=== PATIENT | male | born 1945 | race Caucasian/White ===

== ENCOUNTER → 2021-06-04 10:52 | Outpatient (BNVA) | payer OTHER, SELFPAY | PROVIDERS: PCP Internal Medicine; Visit Provider Psychiatry & Neurology Neurology | DX: G20 Parkinson's disease (principal); F32.A Depression, unspecified; G47.52 REM sleep behavior disorder; F41.9 Anxiety disorder, unspecified | CPT/HCPCS: 99212 ==

== ENCOUNTER → 2021-09-13 13:53 | Outpatient (BNVA) | payer OTHER, SELFPAY | PROVIDERS: PCP Internal Medicine; Visit Provider Nurse Practitioner Family | DX: G20 Parkinson's disease (principal); G47.52 REM sleep behavior disorder; F41.9 Anxiety disorder, unspecified | CPT/HCPCS: 99212 ==

== ENCOUNTER → 2021-12-20 13:43 | Outpatient (BNVA) | payer OTHER, SELFPAY | PROVIDERS: PCP Internal Medicine; Visit Provider Psychiatry & Neurology Neurology | DX: G20 Parkinson's disease (principal); G47.52 REM sleep behavior disorder; M75.52 Bursitis of left shoulder; F41.9 Anxiety disorder, unspecified | CPT/HCPCS: 99212 ==

== ENCOUNTER → 2022-06-20 14:21 | Outpatient (BNVA) | payer OTHER, SELFPAY | PROVIDERS: PCP Internal Medicine; Visit Provider Psychiatry & Neurology Neurology | DX: G20 Parkinson's disease (principal); G47.52 REM sleep behavior disorder; F41.8 Other specified anxiety disorders | CPT/HCPCS: 99212 ==

== ENCOUNTER → 2022-10-22 12:15 | Outpatient (BNVA) | payer OTHER, SELFPAY | PROVIDERS: PCP Internal Medicine; Visit Provider Psychiatry & Neurology Neurology | DX: G20 Parkinson's disease (principal); G47.52 REM sleep behavior disorder; F41.9 Anxiety disorder, unspecified | CPT/HCPCS: 99212 ==

== ENCOUNTER → 2022-12-24 14:35 | Outpatient (REF) | payer OTHER, SELFPAY | LOC: HO.SL 14:35 | PROVIDERS: PCP Internal Medicine; Visit Provider Psychiatry & Neurology Neurology | DX: G47.10 Hypersomnia, unspecified (principal); R06.83 Snoring | CPT/HCPCS: 95806 ==

== ENCOUNTER → 2022-12-24 14:48 | Outpatient (BNV) | payer OTHER, SELFPAY | PROVIDERS: PCP Internal Medicine; Visit Provider Psychiatry & Neurology Neurology | DX: G47.10 Hypersomnia, unspecified (principal) | CPT/HCPCS: 95806 ==

== ENCOUNTER 2023-02-25 12:23 | Outpatient (AMB) | payer OTHER, SELFPAY ==
--- NOTE | 2023-02-25 12:30 | A.OFFVIS_ITS ---
Intake Vital Signs 02/25/23 12:31 Height 5 ft 8 in Weight 166 lb 2 oz BMI 25.3 BP 106/72 Blood Pressure Location Rt brachial Position Sitting Respiration 16 Pulse 51 Pulse Source Pulse Oximeter Pulse Oximetry (%) 95 Oxygen Delivery Method Room Air Intake Visit Reasons: 4m follow up-confirmed Intake Note: Pt presents to the office for a 4 month follow up for tremors. He reports his symptoms are unchanged since his last visit. He c/o of headaches twice a week. 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 Allergies No Known Allergies Allergy (Verified 02/25/23 12:31) Medication List - Last Reconciled 02/25/23 by Faviola Bean MD aspirin 81 mg PO DAILY carbidopa-levodopa 25-100 mg (Sinemet) 1 tab PO TID 90 days coenzyme Q10 mg PO fluoride (sodium) 1.1% (PreviDent 5000 Booster Plus) dental fluoxetine 10 mg PO DAILY glucosamine sulfate 1,000 mg PO DAILY hyoscyamine sulfate 0.125 mg PO BID-QID PRN melatonin 3 mg PO BEDTIME 30 days multivitamin 1 tab PO DAILY polyethylene glycol 3350 (Miralax) 17 grams PO DAILY hddfgdw-wpww-ycjfh-oreg-capryl 100 mg-150 mg- 50 mg-150 mg caps PO HPI HPI Comments History of Present Illness Details 77 y/o male patient presents for follow up of Parkinson's.He reports softer speech . Balance is good His REM behavior disorder is better with melatonin, anxiety is better with prozac. Now he reports increased bowel movements . Right hand tremor stable but not impro jarred. Pt is right handed but uses left hand to eat. He states that his fine motor skills declined, can't close shirt buttons. He takes Sinemet 25/100 mg, 1 tab tid He does routine exercise and stretching. Denies falls. He manages constipation with prune juice and flex seed oatmeal. Pt's mood is stable. Denies depression or anxiety. His REM behavior disorder is better, still has leg movements and dreams. [facility] Medical History Cataract Depression Anxiety REM behavioral disorder Parkinsons disease Surgical History Vasectomy status History of tonsillectomy Family History Mother Breast cancer Brother Thyroid cancer Leukemia Sister Colon cancer Social History Alcohol intake: current Alcohol intake frequency: holidays/special occasions only Patient Tobacco Use Status: Never used Tobacco Review of Systems ENT Reports Normal hearing present Neuro Reports Normal hearing present Physical Exam Vital Signs: Last Vital Signs Pulse 51 02/25/23 12:31 Resp 16 02/25/23 12:31 BP 106/72 02/25/23 12:31 Pulse Ox 95 02/25/23 12:31 Oxygen Delivery Method Room Air 02/25/23 12:31 BMI result Body Mass Index 25.3 Const General: cooperative and no acute distress Nutritional Appearance: average body habitus Orientation/consciousness: patient oriented x3 Neuro Other: moderate decreased facial expression and blink No tremors Right UE mild cogwheel rigidity FFM and foot taps decreased patrick R>L Normal posture Mild decreased arm swings r>L General: patient oriented x3 and moves all extremities Cranial nerves: Yes Bilaterally intact EOM present, Yes Normal facial strength present, Yes Midline tongue present, Yes Normal hearing present, Yes Ability to bilaterally rotate head present and Yes Ability to bilaterally elevate shoulders present Cognition (Neuro): normal cognition Motor exam (neuro): Tremors during motor activity present (right hand posturing tremor,bilateral upper arm and wrist rigidity. ) Assessment & Plan Assessment & Plan (1) Parkinsons disease: Code(s): G20 - Parkinson's disease (2) REM behavioral disorder: Code(s): G47.52 - REM sleep behavior disorder (3) Anxiety: Code(s): F41.9 - Anxiety disorder, unspecified Plan Sinemet 25/100 mg, 1 tab TID. melatonin 10mg q HS for REM behavior. I will trial him on clonazepam 0.5mg 1/2 to 1tab qhs Miralax 3-4 times a week Medications: New clonazepam administer 30 minutes before bedtime 0.5 mg PO BEDTIME 30 tabs 3RF Coding Level of Care Code Est Pt Level 4 (42706) Diagnoses Parkinsons disease G20 REM behavioral disorder G47.52 Anxiety F41.9
[2023-02-25 12:31] VITALS: BP 106/72; PULSE 51; RESP 16; O2SAT 95; BMI 25.3
== END 2023-02-25 13:05 | disposition home or self-care (01) ==
PROVIDERS: PCP Internal Medicine; Visit Provider Psychiatry & Neurology Neurology
DX: G20.A1 Parkinson's disease without dyskinesia, without mention of fluctuations (principal); G47.52 REM sleep behavior disorder; F41.9 Anxiety disorder, unspecified
CPT/HCPCS: 99214

== ENCOUNTER → 2023-02-25 12:23 | Outpatient (BNVA) | payer OTHER, SELFPAY | PROVIDERS: PCP Internal Medicine; Visit Provider Psychiatry & Neurology Neurology | DX: G20.A1 Parkinson's disease without dyskinesia, without mention of fluctuations (principal); G47.52 REM sleep behavior disorder; F41.9 Anxiety disorder, unspecified | CPT/HCPCS: 99212 ==

== ENCOUNTER 2023-08-27 12:47 | Outpatient (AMB) | payer OTHER, SELFPAY ==
--- NOTE | 2023-08-27 12:49 | MHC.OFFVIS ---
Vital Signs 08/27/23 12:50 Height 5 ft 8 in Weight 166 lb BMI 25.2 BP 116/74 Blood Pressure Location Rt brachial Position Sitting Respiration 16 Pulse 60 Pulse Source Palpation Intake Visit Reasons: 6 mnts f/u appt for- LVM Intake Note: Pt presents for a 6 month follow up for tremors. 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 Required: No Allergies No Known Allergies Allergy (Verified 08/27/23 12:50) Medication List - Last Reconciled 08/27/23 by Faviola Bean MD aspirin 81 mg PO DAILY carbidopa-levodopa 25-100 mg (Sinemet) 1 tab PO TID 90 days clonazepam 0.5 mg PO BEDTIME coenzyme Q10 mg PO fluoride (sodium) 1.1% (PreviDent 5000 Booster Plus) dental fluoxetine 10 mg PO DAILY glucosamine sulfate 1,000 mg PO DAILY hyoscyamine sulfate 0.125 mg PO BID-QID PRN melatonin 3 mg PO BEDTIME 30 days multivitamin 1 tab PO DAILY polyethylene glycol 3350 (Miralax) 17 grams PO DAILY zgwqsboj-yjfd-olsnw-oreg-capry 100 mg-150 mg- 50 mg-150 mg caps PO HPI Comments Details: 77 y/o male patient presents for follow up of Parkinson's.He reports softer speech . Balance is good His REM behavior disorder is better with melatonin, anxiety is better with prozac. Now he reports increased bowel movements . Right hand tremor stable but not improved. Pt is right handed but uses left hand to eat. He states that his fine motor skills declined, can't close shirt buttons. He takes Sinemet 25/100 mg, 1 tab tid He does routine exercise and stretching. Denies falls. He manages constipation with prune juice and flex seed oatmeal. . His REM behavior disorder was stable but now has notcied some increase PFSH Medical History Cataract Depression Anxiety REM behavioral disorder Parkinsons disease Surgical History Vasectomy status History of tonsillectomy Family History Mother Breast cancer Brother Thyroid cancer Leukemia Sister Colon cancer Social History Alcohol intake: current Alcohol intake frequency: holidays/special occasions only Patient Tobacco Use Status: Never used Tobacco Review of Systems ENT Reports Normal hearing present Neuro Reports Normal hearing present Physical Exam Vital Signs: Last Vital Signs Pulse 60 08/27/23 12:50 Resp 16 08/27/23 12:50 BP 116/74 08/27/23 12:50 BMI result Body Mass Index 25.2 Const General: cooperative and no acute distress Nutritional Appearance: average body habitus Orientation/consciousness: patient oriented x3 Neuro Other: moderate decreased facial expression and blink right UE tremors Right UE mild cogwheel rigidity FFM and foot taps decreased patrick R>L Normal posture Mild decreased arm swings r>L General: patient oriented x3 and moves all extremities Cranial nerves: Yes Bilaterally intact EOM present, Yes Normal facial strength present, Yes Midline tongue present, Yes Normal hearing present, Yes Ability to bilaterally rotate head present and Yes Ability to bilaterally elevate shoulders present Cognition (Neuro): normal cognition Motor exam (neuro): Tremors during motor activity present (right hand posturing tremor,bilateral upper arm and wrist rigidity. ) Assessment & Plan Assessment & Plan (1) Parkinsons disease: Code(s): G20 - Parkinson's disease Category: Medical (2) REM behavioral disorder: Code(s): G47.52 - REM sleep behavior disorder Category: Medical (3) Anxiety: Code(s): F41.9 - Anxiety disorder, unspecified Category: Medical Plan Sinemet 25/100 mg, 1 tab TID. melatonin 10mg q HS for REM behavior. Increase clonazepam 0.5mg 1tab qhs Miralax 3-4 times a week Medications: Changed From melatonin 3 mg PO BEDTIME 30 days 30 tabs 3RF sleep To melatonin 10 mg PO BEDTIME 30 days 30 tabs 3RF sleep Coding Level of Care Code Est Pt Level 4 (50038) Diagnoses Parkinsons disease G20 REM behavioral disorder G47.52 Anxiety F41.9
[2023-08-27 12:50] VITALS: BP 116/74; PULSE 60; RESP 16; BMI 25.2
== END 2023-08-27 13:19 | disposition home or self-care (01) ==
PROVIDERS: PCP Internal Medicine; Visit Provider Psychiatry & Neurology Neurology
DX: G20.A1 Parkinson's disease without dyskinesia, without mention of fluctuations (principal); G47.52 REM sleep behavior disorder; F41.9 Anxiety disorder, unspecified
CPT/HCPCS: 99214

== ENCOUNTER → 2023-08-27 12:47 | Outpatient (BNVA) | payer OTHER, SELFPAY | PROVIDERS: PCP Internal Medicine; Visit Provider Psychiatry & Neurology Neurology | DX: G20.A1 Parkinson's disease without dyskinesia, without mention of fluctuations (principal); G47.52 REM sleep behavior disorder; F41.9 Anxiety disorder, unspecified | CPT/HCPCS: 99212 ==

== ENCOUNTER 2024-03-22 13:43 | Outpatient (AMB) | payer OTHER, SELFPAY ==
[2024-03-22 13:47] VITALS: BP 124/78; BMI 25.2
--- NOTE | 2024-03-22 13:47 | MHC.OFFVIS ---
Vital Signs 03/22/24 13:47 Height 5 ft 8 in Weight 166 lb BMI 25.2 BP 124/78 Blood Pressure Location Rt brachial Position Sitting Intake Visit Reasons: F/u appt Intake Note: Patient presents for follow up Allergies No Known Allergies Allergy (Verified 03/22/24 13:51) Medication List - Last Reconciled 03/22/24 by Faviola Bean MD aspirin 81 mg PO DAILY carbidopa-levodopa 25-100 mg (Sinemet) 1 tab PO TID 90 days clonazepam 0.5 mg PO BEDTIME coenzyme Q10 mg PO fluoride (sodium) 1.1% (PreviDent 5000 Booster Plus) dental fluoxetine 10 mg PO DAILY glucosamine sulfate 1,000 mg PO DAILY hyoscyamine sulfate 0.125 mg PO BID-QID PRN melatonin 10 mg PO BEDTIME 30 days multivitamin 1 tab PO DAILY polyethylene glycol 3350 (Miralax) 17 grams PO DAILY tqnsliry-yzpt-jgusn-oreg-capry 100 mg-150 mg- 50 mg-150 mg caps PO HPI Comments Details: 78 y/o male patient presents for follow up of Parkinson's.His tremors in his Right hand are constant Balance is good. speech is lower and stutters His REM behavior disorder is better with melatonin and clonazepam. Anxiety is better with prozac. Now he reports increased bowel movements. Pt is right handed but uses left hand to eat. He states that his fine motor skills declined, can't close shirt buttons. He takes Sinemet 25/100 mg, 1 tab tid He does routine exercise and stretching. He has more trouble with fine motor coordination. Denies falls. He manages constipation with prune juice and flex seed oatmeal. [facility] Medical History Cataract Depression Anxiety REM behavioral disorder Parkinsons disease Surgical History Vasectomy status History of tonsillectomy Family History Mother Breast cancer Brother Thyroid cancer Leukemia Sister Colon cancer Social History Alcohol intake: current Alcohol intake frequency: holidays/special occasions only Patient Tobacco Use Status: Never used Tobacco Review of Systems ENT Reports Normal hearing present Neuro Reports Normal hearing present Physical Exam Vital Signs: Last Vital Signs BP 124/78 03/22/24 13:47 BMI result Body Mass Index 25.2 Const General: cooperative and no acute distress Nutritional Appearance: average body habitus Orientation/consciousness: patient oriented x3 Neuro Other: moderate decreased facial expression and blink right UE tremors Right UE mild cogwheel rigidity FFM and foot taps decreased patrick R>L Normal posture Mild decreased arm swings r>L General: patient oriented x3 and moves all extremities Cranial nerves: Yes Bilaterally intact EOM present, Yes Normal facial strength present, Yes Midline tongue present, Yes Normal hearing present, Yes Ability to bilaterally rotate head present and Yes Ability to bilaterally elevate shoulders present Cognition (Neuro): normal cognition Motor exam (neuro): Tremors during motor activity present (right hand posturing tremor,bilateral upper arm and wrist rigidity. ) Assessment & Plan Assessment & Plan (1) Parkinsons disease: Code(s): G20 - Parkinson's disease Category: Medical Qualifiers: Dyskinesia presence: without dyskinesia Fluctuating manifestations: without fluctuating manifestations Qualified Code(s): G20.A1 - Parkinson's disease without dyskinesia, without mention of fluctuations (2) REM behavioral disorder: Code(s): G47.52 - REM sleep behavior disorder Category: Medical (3) Anxiety: Code(s): F41.9 - Anxiety disorder, unspecified Category: Medical Plan Increase Sinemet 25/100 mg, 1 tab qID. melatonin 10mg q HS for REM behavior. clonazepam 0.5mg 1tab qhs Miralax 3-4 times a week Orders: Orders Complete Blood Count Auto Diff Today R35.0 - Frequency of micturition UA w Microscopic Today R35.0 - Frequency of micturition Comprehensive Met. Panel Today R35.0 - Frequency of micturition Referrals Urology Referral G20.A1 - Parkinson's disease without dyskinesia, without mention of fluctuations, R35.0 - Frequency of micturition Medications: New levofloxacin 250 mg PO Q24H 7 tabs 0RF fluoxetine 10 mg PO DAILY 90 caps 6RF Changed From carbidopa-levodopa 25-100 mg (Sinemet) 1 tab PO TID 90 days 270 tabs 6RF To carbidopa-levodopa 25-100 mg (Sinemet) 1 tab PO QID 90 days 360 tabs 6RF Refilled clonazepam administer 30 minutes before bedtime 0.5 mg PO BEDTIME 30 tabs 3RF Coding Level of Care Code Est Pt Level 4 (65322) Complex EM visit Add On G2211 Diagnoses Parkinson's disease without dyskinesia or fluctuating manifestations G20.A1 Dyskinesia presence: without dyskinesia Fluctuating manifestations: without fluctuating manifestations REM behavioral disorder G47.52 Anxiety F41.9
== END 2024-03-22 14:35 | disposition home or self-care (01) ==
PROVIDERS: PCP Internal Medicine; Visit Provider Psychiatry & Neurology Neurology
DX: G20.A1 Parkinson's disease without dyskinesia, without mention of fluctuations (principal); G47.52 REM sleep behavior disorder; F41.9 Anxiety disorder, unspecified
CPT/HCPCS: 99214

== ENCOUNTER → 2024-03-22 13:43 | Outpatient (BNVA) | payer OTHER, SELFPAY | PROVIDERS: PCP Internal Medicine; Visit Provider Psychiatry & Neurology Neurology | DX: G20.A1 Parkinson's disease without dyskinesia, without mention of fluctuations (principal); G47.52 REM sleep behavior disorder; F41.9 Anxiety disorder, unspecified | CPT/HCPCS: 99212 ==

== ENCOUNTER 2024-05-19 14:37 | Outpatient (AMB) | payer OTHER, SELFPAY ==
--- NOTE | 2024-05-19 14:55 | A.OFFVIS_ITS ---
Intake Visit Reasons: urinary frequency Intake Note: New patient Presents for Urinary Frequency Any Urology Medication: None Antibiotic Allergies:None Blood Thinners: Asprin PVR: 12ml Location Analyst Required: No Accompanied by: Self / Same As Patient Allergies No Known Allergies Allergy (Verified 05/19/24 15:31) Medication List - Last Reconciled 05/19/24 by MEGAN Rodriguez aspirin 81 mg PO DAILY carbidopa-levodopa 25-100 mg (Sinemet) 1 tab PO QID 90 days clonazepam 0.5 mg PO BEDTIME coenzyme Q10 mg PO fluoride (sodium) 1.1% (PreviDent 5000 Booster Plus) dental fluoxetine 10 mg PO DAILY glucosamine sulfate 1,000 mg PO DAILY hyoscyamine sulfate 0.125 mg PO BID-QID PRN levofloxacin 250 mg PO Q24H melatonin 10 mg PO BEDTIME 30 days multivitamin 1 tab PO DAILY polyethylene glycol 3350 (Miralax) 17 grams PO DAILY zmgzmalo-lgeu-bsoar-oreg-capry 100 mg-150 mg- 50 mg-150 mg caps PO HPI Comments Details: Mario is a very pleasant 78-year-old male patient of Dr. Mckeon. He has a past medical history of urinary frequency, cataracts, depression, anxiety, and Parkinson's disease. He presents to the office today as a new patient for ongoing lower urinary tract symptoms. In discussion with the patient today he reports noting urinary urgency, bladder pressure, and urinary frequency. He otherwise denies hematuria, dysuria, foul smelling urine, changes to urinary stream, flank pain, fever, and or chills. We discussed at length potential causes for lower urinary tract symptoms patient was experiencing as well as further treatment options and risks and benefits of these treatment options. In office urinalysis results reviewed with the patient today. PVR 12 mL. We discussed at length correlation of Parkinson's disease and lower urinary tract symptoms. Discussed obtaining retroperitoneal ultrasound for further assessment evaluation as well as PSA. We discussed potential near future in office urodynamics and or cystoscopy for further assessment evaluation. We discussed lifestyle modifications to assist with lower urinary tract symptoms. He otherwise offers no other issues or concerns at this time. [facility] Medical History Urinary frequency Cataract Depression Anxiety REM behavioral disorder Parkinsons disease Surgical History Vasectomy status History of tonsillectomy Family History Mother Breast cancer Brother Thyroid cancer Leukemia Sister Colon cancer Social History Alcohol intake: current Alcohol intake frequency: holidays/special occasions only Patient Tobacco Use Status: Never used Tobacco Review of Systems Const All systems reviewed & are unremarkable except as noted in HPI and below Physical Exam Const General: cooperative, healthy appearing, comfortable, no acute distress, well developed, alert and awake Orientation/consciousness: patient oriented x3 Limitations: no limitations HEENT Head: Yes normal to inspection, Yes normocephalic and Yes atraumatic Ears: hearing grossly normal bilaterally Eyes General: appearance normal, both eyes and all related structures Neck Neck: Yes normal visual inspection and Yes trachea midline Chest Chest palpation & inspection: normal inspection of the chest Resp Effort & Inspection: normal respiratory effort and able to speak in complete sentences Cardio Rate: regular rate GI Inspection: Yes normal to inspection General: Yes no CVA tenderness Back/Spine/Pelvis Back: no CVA tenderness Skin General skin exam: no rashes or lesions noted Neuro General: patient oriented x3 Extrem General: Yes normal to inspection Psych Appearance: grossly normal and well kempt Mental Status: mental status grossly normal Speech and movement: Normal speech and movement present and Clear speech present Affect: normal affect Attitude: cooperative Thought process: Normal thought process present Thought content: Normal thought content present Insight: Fair insight present (Psych) Judgement: Fair judgement present (Psych) Office Procedures Post Void Residual Post Residual Void Post Void Residual (PVR): 12 68710-[id number] Void Residual by ultrasound Results AMB Urinalysis, Automated UA Leukoctes 0 Yon/uL Last Edit by REMINGTON Dunn on 05/19/24 15:11 UA Nitrite Negative Last Edit by REMINGTON Dunn on 05/19/24 15:11 UA Urobilinogen 0.2 mg/dL Last Edit by REMINGTON Dunn on 05/19/24 15:1 1 UA Protein 0 mg/dL Last Edit by REMINGTON Dunn on 05/19/24 15:11 UA pH 6.0 Last Edit by Ana Luisa Madera RMA on 05/19/24 15:11 UA Blood 10 Jaspreet/uL Last Edit by Ana Luisa Madera, RMA on 05/19/24 15:11 UA Specific [place] 1.005 Last Edit by Ana Luisa Madera, RMA on 05/19/24 15: 11 UA Ketone Negative Last Edit by Ana Luisa Madera, RMA on 05/19/24 15:11 UA Bilirubin 0 mg/dL Last Edit by Ana Luisa Madera, RMA on 05/19/24 15:11 UA Glucose 0 mg/dL Last Edit by Ana Luisa Madera, RMA on 05/19/24 15:11 Results Reviewed Results Reviewed: Laboratory Last Values Urine pH (Auto) 6.0 05/19/24 15:10 Specific [place] (Auto) 1.005 05/19/24 15:10 Urine Protein (Auto) 0 mg/dL 05/19/24 15:10 Glucose (UA)(Auto) 0 mg/dL 05/19/24 15:10 Urine Ketones (Auto) Negative 05/19/24 15:10 Urine Blood (Auto) 10 Jaspreet/uL 05/19/24 15:10 Urine Nitrite (Auto) Negative 05/19/24 15:10 Urine Bilirubin (Auto) 0 mg/dL 05/19/24 15:10 Urine Urobilinogen (Auto) 0.2 mg/dL 05/19/24 15:10 Leukocyte Esterase (Auto) 0 Yon/uL 05/19/24 15:10 Assessment & Plan Assessment & Plan (1) Urinary frequency: Code(s): R35.0 - Frequency of micturition Category: Medical (2) Urinary urgency: Code(s): R39.15 - Urgency of urination Category: Medical (3) Sensation of pressure in bladder area: Code(s): R39.89 - Other symptoms and signs involving the genitourinary system Category: Medical Plan In office urinalysis results reviewed with the patient today; as noted above. PVR 12 mL. We discussed at length potential causes of lower urinary tract symptoms patient was experiencing as well as further treatment options and risks and benefits of these treatment options. Will obtain retroperitoneal ultrasound for further assessment evaluation. Will obtain PSA for further assessment evaluation. Start Flomax. We discussed lifestyle modifications to assist with lower urinary tract symptoms. We discussed bladder triggers/irritants. Follow-up in 1-3 months with imaging, labs, and PVR; or sooner with any issues, concerns, and or questions. Orders: Orders US retroperitoneal comp Today R35.0 - Frequency of micturition, R39.15 - Urgency of urination, R39.89 - Other symptoms and signs involving the genitourinary system Prostate Specific Antigen Today R35.0 - Frequency of micturition, R39.15 - Urgency of urination, R39.89 - Other symptoms and signs involving the genitourinary system AMB Urinalysis Automated Today Z13.9 - Encounter for screening, unspecified AMB Post Void Residual by ultrasound Today R35.0 - Frequency of micturition Medications: New tamsulosin 0.4 mg PO BEDTIME 30 caps 3RF 30 days N40.1 - Benign prostatic hyperplasia with lower urinary tract symptoms, R35.1 - Nocturia Patient Instructions: The patient had an opportunity to ask questions regarding the treatment plan. All questions were answered. Physical exam, labs, and imaging were discussed and reviewed in detail. As well as risks, benefits, and discussion of treatment choices. No major barriers to understanding were identified. The patient expressed understanding and agreement with the above treatment plan. The patient was made aware they should contact our office by phone for worsening of their current condition, the appearance of new symptoms, or with any questions or concerns. Compliance is encouraged with any medications and follow up testing that is ordered. It is a privilege to be allowed the opportunity to participate in? your urological care.? Again, if you have any questions or concerns If you have any questions or concerns please do not hesitate to contact me. The office is [phone]. This note is constructed using voice recognition software. While every effort has been made to ensure accuracy commercial property administrator errors may have been included. Yours sincerely, MEGAN Rodriguez Coding Level of Care Code New Pt Level 4 (04942) Diagnoses Urinary frequency R35.0 Urinary urgency R39.15 Sensation of pressure in bladder area R39.89 CPT Codes Post Residual Void - PVR CPT Code: 96076-[place]wup Void Residual by ultrasound ([id number])
--- OUTSIDE RECORDS SUMMARY | 2024-05-19 17:03 | XMS_ITS | Encounter Summary ---
Author Organization [facility] Address [address] [place] [address] Care Team Providers Care Mason Liner Name Role Phone Nataliia Mckeon MD Primary Care Provider [phone] Reason for Referral * Consultation (Routine) - Pending Review Specialty Diagnoses / Procedures Referred By Ayanna ribeiro Referred To Contact Urology Diagnoses Scrotal cyst Nataliia Mckeon MD [address] [place] [id number] Cherelle Guerra [address] [place] [phone] Referral ID Status Reason Start Date Expiration Date Visits Requested Visits Authorized [id number] Pending Review Specialty Services Required 05/11/2024 05/11/2025 10 10 Reason for Visit * Reason Onset Date Comments Referral 05/04/2024 Referral for [facility] Encounter Details Date Type Department Care Team (Late st Contact Info) Description 05/04/2024 Telephone Adult Medicine [address] [phone] Nataliia Mckeon MD [address] [place] [address] [phone] Referral (Referral for [facility]) Social History Tobacco Use Types Packs/Day Years Used Date Smoking Tobacco: Never Smokeless Tobacco: Never Alcohol Use Standard Drinks/Week Comments Yes 0 (1 standard drink = 0.6 oz pur e alcohol) Sex and Gender Information Value Date Recorded Sex Assigned at Not on file Gender Identity Not on file Sexual Orientation Not on file documented as of this encounter Progress Notes * Tanvi Brown LPN - 05/04/2024 3:14 PM EST Pt was last seen October 2023.. no mention of urinary freq. Please triage * Brenda Cuadra - 05/04/2024 2:23 PM EST Request for an insurance referral Caller: n/a Office: [facility] Insurance: Family ID: [id number] Provider: Cherelle Guerra DOS: 05/19/24 Visits: 10 Dx code: R35.0, urinary frequency IMPORTANT Pls copy and paste this into the order. Otherwise, it will not be processed as an ins referral documented in this encounter Plan of Treatment Upcoming Encounters Date Type Department Care Team (Late st Contact Info) Description 05/24/2024 1:00 PM EST Office Visit Adult Medicine [address] [phone] Nataliia Mckeon MD [address] [place] [phone] Scheduled Referrals Name Type Priority Associated Diagnoses Order Schedule Ambulatory referral to Urology Outpatient Referral Routine Scrotal cyst 1 Occurrences starting 05/05/2024 until 05/04/2025 documented as of this encounter Visit Diagnoses Diagnosis Scrotal cyst- Primary documented in this encounter Care Teams Mason Liner Relationship Specialty Start Date End Date Nataliia Mckeon MD [address] [place] [phone] PCP - General Internal Medicine 10/24/20 documented as of this encounter
--- OUTSIDE RECORDS SUMMARY | 2024-05-19 17:03 | XMS_ITS | Clinical Summary ---
Author Organization [facility] Address [address] [place] [address] Phone Care Team Providers Care Security Tester Name Role Phone Nataliia Mckeon MD Primary Care Provider [phone] Allergies Active Allergy Reactions Criticality Noted Date Comments Amoxicillin Trihydrate Rash High 09/03/2005 Cephalexin Monohydrate Rash High 09/03/2005 Medications Medication Sig Dispensed Refills Start Date End Date Status aspirin 81 mg chewable tablet Take 1 Tablet by mouth once. 3 times weekly 08/16/2010 Active carbidopa-levodopa (SINEMET) 25-100 mg per tablet 3 times daily. 01/23/2021 Active coenzyme Q-10 10 mg capsule Take by mouth 1 (one) time each day. Active FLUoxetine (PROzac) 10 mg capsule Take 1 capsule (10 mg total) by mouth 1 (one) time each day. 11/20/2023 Active fluticasone propionate (FLONASE) 50 mcg/actuation nasal spray 2 Sprays by Nasal route daily. 09/05/2021 Active glucosam/sherri-msm1/C/ franki/bosw (GLUCOSAMINE-CHONDROI TIN 3X ORAL) Take by mouth 1 (one) time each day. Active multivitamin with minerals (Multiple Vitamin-Minerals) tablet Take by mouth. Active melatonin 1 mg tablet Take 1 mg by mouth at bedtime. Active turmeric root extract 500 mg capsule Take by mouth. Active fluoride, sodium, (PreviDent 5000 Booster Plus) 1.1 % paste Historic 08/26/2022 Active Active Problems Problem Noted Date Diagnosed Date Hyperglycemia 11/12/2022 Parkinson disease 06/11/2021 Scrotal cyst 05/25/2020 Overview (03/24/2024): Numerous on u/s 04/2020, likely epidydimal cysts vs spermatoceles ED (erectile dysfunction) of organic origin 01/26 Benign neoplasm of colon 12/02/2006 Overview (03/24/2024): Diminutive tubular adenomas x 2 at colonoscopy 11/09/2001. Negative colonoscopy 12/02/2006, no colon cancer screening needed for 5 years. Allergic rhinitis 09/03/2005 Esophageal reflux 09/03/2005 Overview (03/24/2024): EGD was normal, 05/24/2004. Hearing loss 09/03/2005 Irritable bowel syndrome 09/03/2005 Lyme disease 09/03/2005 Overview (03/24/2024): Last Assessment & Plan: 1997 Encounters Date Type Department Care Team Description 05/04/2024 Telephone Adult Medicine [address] [address] Nataliia Mckeon MD Referral (Referral for [facility]) from Last 3 Months Immunizations Name Administration Dates Next Due H1N1 Inj Preservative Free 04/19/2009 Influenza trivalent, 0.5mL ( Fluad) 65yo and older 01/30/2022,01/30/2021,01/22/2020,02/14,01/31/2016 Influenza trivalent, 0.5mL, preservative free (Fluarix; FluLaval; Fluzone) ages 6mo and older (Afluria) 3 years and older 01/27/2015,02/02/2014,01/12/2013,01/06,01/10/2011,02/08/2010,01/20/2009 ,03/06/2006 Moderna Covid-19 Bivalent, O riginal + Ba.1 (Non-US Tradename Spikevax Bivalent) 02/04/2022 Pneumococcal conjugate 13 va lent (Prevnar 13, PCV13) 2mo and older 04/12/2014 Pneumococcal polysaccharide 23 valent (Pneumovax 23) 2yo and older 10/04/2011 Td Tetanus diptheria (Tdvax) 7yo and older 10/26/2014,06/12/2000 Tdap Tetanus diptheria acell ular pertussis (Boostrix; Adacel) 7yo and older 08/11/2008 Zoster Live 10/04/2011 Zoster recombinant (Shingrix ) 19yo and older 12/15/2020,10/10/2020 Surgical History Surgery Date Site/Laterality Comments VASECTOMY PROCEDURE: AR VASECTOMY UNI/BI SPX W/POSTOP SEMEN EXAMS NASAL SEPTUM SURGERY PROCEDURE: AR REPAIR NASAL SEPTAL PERFORATIONS; COMMENT: 2 operations TONSILLECTOMY PROCEDURE: HISTORICAL TONSILLECTOMY; COMMENT: 1960 UPPER GASTROINTESTINAL ENDOSCOPY 05/24/2004 PROCEDURE: AR UPPER GI ENDOSCOPY PERFORMED; COMMENT: Negative COLONOSCOPY 11/09/2001 PROCEDURE: HISTORICAL COLONOSCOPY; COMMENT: Dim tub ad x2 COLONOSCOPY 12/02/2006 PROCEDURE: HISTORICAL COLONOSCOPY; COMMENT: Negative COLONOSCOPY 02/07/2012 PROCEDURE: HISTORICAL COLONOSCOPY; COMMENT: no polyps COLONOSCOPY 02/24/2017 PROCEDURE: HISTORICAL COLONOSCOPY; COMMENT: Right colon polyps ? 3 : Tubular adenoma ? 3 . COLONOSCOPY 03/10/2020 PROCEDURE: HISTORICAL COLONOSCOPY; COMMENT: Diverticulosis, no polyps, repeat in 5 years. Medical History Medical History Date Comments Allergic rhinitis, cause unspecified DX:Allergic rhinitis, cause unspecified Irritable bowel syndrome DX:Irri table bowel syndrome Esophageal reflux DX:Esophageal reflux Lyme disease DX:Lyme disease Family history of malignant neoplasm of gastrointestinal tract 12/02/2006 DX:Family history of maligna nt neoplasm of gastrointestinal tract; COMMENT: Sister with diagnosis of colon cancer at age 47. First-degree relatives x 3 with colonic polyps. Benign neoplasm of colon 12/02/2006 DX:[place] neoplasm of colon; COMMENT: Diminutive tubular adenomas x 2 at colonoscopy 11/09/2001. Negative colonoscopy 12/02/2006, no colon cancer screening needed for 5 years. Hearing loss 09/03/2005 DX:Hearing loss ED (erectile dysfunction) of organic origin 02/12/2016 DX:ED (erectile dysfunction) of organic origin Scrotal cyst 05/25/2020 DX:Scrotal cyst; COMMENT: Numerous on u/s 04/2020, likely epidydimal cysts vs spermatoceles Parkinson disease (CMS/HCC) 06/11/2021 DX:P arkinson disease (HCC) Family History Medical History Relation Name Comments Breast cancer Aunt 1 maternal aunt; bilateral Breast cancer Aunt 2 paternal aunt Breast cancer Aunt 3 paternal aunt Breast cancer Aunt 4 maternal aunt; unilateral Other: thyroid cancer Brother 1 1 04/2019 Other: neoblastoma Brother 2 Leukemia Brother 3 Leukemia Brother 4 Other cancer Brother 5 thyroid Leukemia Daughter 1 Other: Other Father 66, pa ncreatitis, [place] Breast cancer Maternal Grandmother bilate ral; age at diagnosis unclear Breast cancer Mother 1970, unilateral Bladder Cancer Other 1 maternal firs t cousin Breast cancer Other 2 maternal first cousin Colon cancer Paternal Grandfather at age 66 Throat cancer Paternal Grandmother nonsmo ker Colon cancer Sister 1 Leukemia Uncle paternal uncle Relation Name Status Comments Aunt 1 Aunt 2 Aunt 3 Aunt 4 Brother 1 Myelodysplasia then AML Brother 2 Brother 3 Brother 4 Brother 5 Alive Brother 6 Glioblastoma Brother 7 Myelodydplasia Brother 8 Alive 2 Healthy Daughter 1 Daughter 2 Leukemia - AML Father (Age 66) Pancreatic failure alcholism Maternal Grandfather choking Maternal Grandmother Breast cancer Mother (Age 59) Breast can cer Other 1 Other 2 Paternal Grandfather [place] - co peter? Paternal Grandmother Throat cancer Sister 1 Sister 2 2 at Sister 3 Alive Colon Cancer Sister 4 Alive Breast cancer Sister 5 Alive Healthy Son Alive Healthy Uncle Social History Tobacco Use Types Packs/Day Years Used Date Smoking Tobacco: Never Smokeless Tobacco: Never Alcohol Use Standard Drinks/Week Comments Yes 0 (1 standard drink = 0.6 oz pur e alcohol) Sex and Gender Information Value Date Recorded Sex Assigned at Not on file Gender Identity Not on file Sexual Orientation Not on file Obstetrics History Last Filed Vital Signs Vital Sign Reading Time Taken Comments Blood Pressure 118/74 11/20/2023 1:52 PM EDT Pulse 66 11/20/2023 1:52 PM EDT Temperature - - Respiratory Rate - - Oxygen Saturation - - Inhaled Oxygen Concentration - - Weight 73.5 kg (162 lb) 11/20/2023 1:52 PM EDT Height 170.2 cm (5' 7 ) 11/20/2023 1:52 PM EDT Body Mass Index 25.37 11/20/2023 1:52 PM EDT Plan of Treatment Upcoming Encounters Date Type Department Care Team (Late st Contact Info) Description 05/24/2024 1:00 PM EST Office Visit Adult Medicine [facility] [address] [place] [address] Nataliia Mckeon MD [address] [place] [address] Health Maintenance Due Date Last Done Comments RSV Immunization Patients 60+ Years Old (1 - 1-dose 75+ series) 2021 Falls Risk Assessment 04/06/2022 Social Influencers of Health Screening 04/06/2022 COVID-19 Vaccine ( season) 2023 02/04/2022, 03/09/2021, 07/22/2020, Additional history exists Influenza Vaccine (#1) 2023 , 01/30/2021, 01/22/2020, Additional history exists DTaP,Tdap,and Td Vaccines (4 - Td or Tdap) 10/26/2024 10/26/2014, 08/11/2008, 06/12/2000 Depression Screening 11/19/2024 11/20/2023 Medicare Annual Wellness Visit 11/19/2024 11/20/2023 Colorectal Cancer Screening: Colonoscopy 03/10/2025 03/10/2020 Cholesterol Screening (Lipid Panel) 06/14/2026 06/14/2021 Hepatitis C Screening Completed 10/22/2012 Pneumococcal Vaccine: 65+ Years Completed 04/12/2014, 10/04/2011 Zoster Vaccines Completed 12/15/2020, 09/26, 10/04/2011 HIB Vaccines Aged Out No longer eligi ble based on patient's age to complete this topic HPV Vaccines Aged Out No longer eligi ble based on patient's age to complete this topic Hepatitis A Vaccines Aged Out No long er eligible based on patient's age to complete this topic Hepatitis B Vaccines Aged Out No long er eligible based on patient's age to complete this topic IPV Vaccines Aged Out No longer eligi ble based on patient's age to complete this topic MMR Vaccines Aged Out No longer eligi ble based on patient's age to complete this topic Meningococcal ACWY Vaccine Aged Out N o longer eligible based on patient's age to complete this topic RSV Immunization Patients Under 20 months Aged Out No longer eligible based on patient's age to complete this topic Varicella Vaccines Aged Out No longer eligible based on patient's age to complete this topic Procedures Procedure Name Priority Date/Time Associated Diagnosis Comments DEPRESSION SCREENING Routine 11/20/2023 LIPID PANEL Routine 06/14/2021 COLONOSCOPY Routine 03/10/2020 HEPATITIS C SCREENING Routine 10/22/2012 from Last 3 Months or Most Recently Relevant to Health Maintenance Results * Depression Screening (11/20/2023) Pathologist [facility] Depression Screening abstracted Historical Provider MD SANDY Fitch * Lipid panel (06/14/2021) [facility] LDL/HDL Ratio 3 0 - 4 Triglycerides 96 0 - 150 mg/dL Cholesterol 140 0 - 200 mg/dL HDL 45 40 mg/dL LDL Cholesterol 76 0 - 100 mg/dL Blood Venous blood specimen / Unknown Historical Provider LAB BLOOD ORDERAB LES * Colonoscopy (03/10/2020) Pathologist [facility] Colonoscopy abnormal, abstracted Anatomical Region Laterality Modality Other Historical Provider MD SANDY PEDERSON E * Hepatitis C Screening (10/22/2012) Pathologist [facility] Hepatitis C Screening abstracted Historical Provider MD SANDY Fitch from Last 3 Months or Most Recently Relevant to Health Maintenance Care Teams Security Tester Relationship Specialty Start Date End Date Nataliia Mckeon MD [address] [place] [address] PCP - General Internal Medicine 10/24/20
== END 2024-05-19 15:32 | disposition home or self-care (01) ==
PROVIDERS: PCP Internal Medicine; Visit Provider Nurse Practitioner Family
DX: R35.0 Frequency of micturition (principal); R39.15 Urgency of urination; R39.89 Other symptoms and signs involving the genitourinary system; Z13.9 Encounter for screening, unspecified
CPT/HCPCS: 99204

== ENCOUNTER 2024-05-19 14:37 | Outpatient (REF) | payer OTHER, SELFPAY ==
--- OUTSIDE RECORDS SUMMARY | 2024-05-19 18:23 | XMS_ITS | Clinical Summary ---
Author Organization [facility] Address [address] [place] [address] Phone Care Team Providers Care Refractory Specialist Name Role Phone Nataliia Mckeon MD Primary Care Provider [phone] Allergies Active Allergy Reactions Criticality Noted Date [...] Care Team Description 05/04/2024 Telephone Adult Medicine [address] [phone] Nataliia Mckeon MD Referral (Referral for [facility]) from Last 3 Months Immunizations [...] History Surgery Date Site/Laterality Comments VASECTOMY PROCEDURE: ND VASECTOMY UNI/BI SPX W/POSTOP SEMEN EXAMS NASAL SEPTUM SURGERY PROCEDURE: ND REPAIR NASAL SEPTAL PERFORATIONS; COMMENT: 2 operations TONSILLECTOMY PROCEDURE: HISTORICAL TONSILLECTOMY; COMMENT: 1960 UPPER GASTROINTESTINAL ENDOSCOPY 05/24/2004 PROCEDURE: ND UPPER GI ENDOSCOPY PERFORMED; COMMENT: Negative COLONOSCOPY [...] 1 Other: Other Father 66, pa ncreatitis, [place] Breast cancer Maternal Grandmother bilate ral; age [...] 1:00 PM EST Office Visit Adult Medicine [facility] [address] [place] [address] Nataliia Mckeon MD [address] [place] [address] Health Maintenance Due Date Last Done Comments [...] Maintenance Results * Depression Screening (11/20/2023) Pathologist [facility] Depression Screening abstracted Historical Provider MD SANDY Fitch * Lipid panel (06/14/2021) [facility] LDL/HDL Ratio 3 0 - 4 Triglycerides 96 0 - 150 mg/dL Cholesterol 140 0 - 200 mg/dL HDL 45 40 mg/dL LDL Cholesterol 76 0 - 100 mg/dL Blood Venous blood specimen / Unknown Historical Provider LAB BLOOD ORDERAB LES * Colonoscopy (03/10/2020) Pathologist [facility] Colonoscopy abnormal, abstracted Anatomical Region Laterality Modality Other Historical Provider MD SANDY PEDERSON E * Hepatitis C Screening (10/22/2012) Pathologist [facility] Hepatitis C Screening abstracted Historical Provider MD SANDY Fitch from Last 3 Months or Most Recently Relevant to Health Maintenance Care Teams Refractory Specialist Relationship Specialty Start Date End Date Nataliia Mckeon MD [address] [place] [address] PCP - General Internal Medicine 10/24/20
--- OUTSIDE RECORDS SUMMARY | 2024-05-19 18:24 | XMS_ITS | Encounter Summary ---
Author Organization [facility] Address [address] [place] [address] Care Team Providers Care Coagulant Dipper Name Role Phone Nataliia Mckeon MD Primary Care Provider [phone] Reason for Referral * Consultation (Routine) - Pending Review Specialty Diagnoses / Procedures Referred By Ayanna ribiero Referred To Contact Urology Diagnoses Scrotal cyst Nataliia Mckeon MD [address] [place] [phone] Cherelle Guerra [address] [place] [phone] Referral ID Status Reason Start Date Expiration Date Visits Requested Visits Authorized [id number] Pending Review Specialty Services Required 05/11/2024 05/11/2025 10 10 Reason for Visit * Reason Onset Date Comments Referral 05/04/2024 Referral for [facility] Encounter Details Date Type Department Care Team (Late st Contact Info) Description 05/04/2024 Telephone Adult Medicine [address] [phone] Nataliia Mckeon MD [address] [place] [phone] Referral (Referral for [facility]) Social History Tobacco Use Types [...] for an insurance referral Caller: n/a Office: [facility] Insurance: Family ID: [id number] Provider: Cherelle Guerra DOS: 05/19/24 Visits: 10 Dx code: R35.0, urinary frequency IMPORTANT Pls copy and paste this into the order. Otherwise, it will not be processed as an ins referral documented in this encounter Plan of Treatment Upcoming Encounters Date Type Department Care Team (Late st Contact Info) Description 05/24/2024 1:00 PM EST Office Visit Adult Medicine [address] [phone] Nataliia Mckeon MD [address] [place] [phone] Scheduled Referrals Name Type Priority Associated Diagnoses Order Schedule Ambulatory referral to Urology Outpatient Referral Routine Scrotal cyst 1 Occurrences starting 05/05/2024 until 05/04/2025 documented as of this encounter Visit Diagnoses Diagnosis Scrotal cyst- Primary documented in this encounter Care Teams Coagulant Dipper Relationship Specialty Start Date End Date Nataliia Mckeon MD [address] [place] [id number] PCP - General Internal Medicine 10/24/20 documented as of this encounter
== END 2024-05-19 14:38 | disposition home or self-care (01) ==
LOC: HO.LAB 14:37
PROVIDERS: PCP Internal Medicine; Visit Provider Nurse Practitioner Family
DX: R35.0 Frequency of micturition (principal); R39.89 Other symptoms and signs involving the genitourinary system; R39.15 Urgency of urination
CPT/HCPCS: 51798; 81003; 99202

== ENCOUNTER 2024-05-19 17:02 | Outpatient (REF) | payer OTHER, SELFPAY ==
[2024-05-19 17:14] LABS: Urine Cytology See Pathology rpt
== END 2024-05-19 17:03 | disposition home or self-care (01) ==
LOC: HO.LNP 17:02
PROVIDERS: Visit Provider Nurse Practitioner Family
DX: R39.15 Urgency of urination (principal); Z13.9 Encounter for screening, unspecified; R39.89 Other symptoms and signs involving the genitourinary system; R35.0 Frequency of micturition
CPT/HCPCS: 88112

== ENCOUNTER 2024-08-10 10:20 | Outpatient (REF) | payer OTHER, SELFPAY ==
--- NOTE | ~2024-08-10 | US_ITS ---
EXAMINATION: US RETROPERITONEUM HISTORY: R35.0 - Frequency of micturition TECHNIQUE: Real-time grayscale ultrasound imaging of the kidneys was performed and images were reviewed. COMPARISON: There are no prior studies for comparison. FINDINGS: Right kidney: The right kidney measures 10.9 x 5.4 x 4.8 cm. Renal parenchymal echotexture and thickness are normal. There is a 2.4 x 2.1 x 1.9 cm cyst at the upper pole. There is no hydronephrosis or renal calculi. Left Kidney: The left kidney measures 11.0 x 5.1 x 4.1 cm. Renal parenchymal echotexture and thickness are normal. There is a 1.8 x 1.3 x 1.1 cm cyst at the upper pole demonstrating an internal calcification. There is an additional 1.1 x 0.6 x 0.6 cm cyst in the interpolar region. There is no hydronephrosis or renal calculi. The urinary bladder is unremarkable. Bilateral ureteral jets are identified. Before voiding, the urinary bladder measured 11.1 x 5.6 x 6.3 cm, for an estimated volume of 204 mL. After voiding, the urinary bladder measured 6.6 x 3.3 x 4.3 cm, for an estimated volume of 50 mL. The prostate measures 4.8 x 4.6 x 3.7 cm. US/US retroperitoneal comp IMPRESSION: 1. Bilateral renal cysts as described. The 1.8 x 1.3 x 1.1 cm cyst at the upper pole of the left kidney is mildly complicated, and follow-up is recommended. 2. Post void bladder residual of 50 mL. Electronically signed by: Guillermo Garcia MD 08/10/2024 01:14 PM EDT
--- OUTSIDE RECORDS SUMMARY | 2024-08-10 12:25 | XMS_ITS | Clinical Summary ---
Author Organization [facility] Address [address] [place] [address] Phone Care Team Providers Care Cephalometric Tracer Name Role Phone Nataliia Mckeon MD Primary Care Provider [phone] Allergies Active Allergy Reactions Criticality Noted Date Comments Amoxicillin Trihydrate Rash High 09/03/2005 Cephalexin Monohydrate Rash High 09/03/2005 Medications aspirin 81 mg chewable tablet Take 1 Tablet by mouth once. 3 times weekly 1 Active carbidopa-levod opa (SINEMET) 25-100 mg per tablet 3 times daily. 1 Active coenzyme Q-10 10 mg capsule Take by mouth 1 (one) time each day. Active glucosam/sherri-m sm1/C/franki/bosw (GLUCOSAMINE-CH ONDROITIN 3X ORAL) Take by mouth 1 (one) time each day. Active multivitamin with minerals (Multiple Vitamin-Mineral s) tablet Take by mouth. Active melatonin 1 mg tablet Take 1 mg by mouth at bedtime. Active turmeric root extract 500 mg capsule Take by mouth. Active fluoride, sodium, (PreviDent 5000 Booster Plus) 1.1 % paste Historic 3 Active FLUoxetine (PROzac) 20 mg capsule Take 1 capsule (20 mg total) by mouth 1 (one) time each day. 30 each 5 5 11/21/19 25 Active clonazePAM (KlonoPIN) 0.5 mg tablet 1 tablet (0.5 mg total) at bedtime. 5 Active tamsulosin (FLOMAX) 0.4 mg 24 hr capsule Take 1 capsule (0.4 mg total) by mouth 1 (one) time each day. 5 Active docusate sodium (Colace) 100 mg capsule Take 1 capsule (100 mg total) by mouth 2 (two) times a day. 60 each 11 5 Active simethicone (Mylanta Gas) 125 mg chewable tablet Chew 1 tablet (125 mg total) every 6 (six) hours if needed for flatulence. 30 tablet 11 5 Active loratadine (CLARITIN) 10 mg tablet Take 1 tablet (10 mg total) by mouth 1 (one) time each day. 30 each 5 5 01/11/20 25 Active azithromycin (ZITHROMAX) 250 mg tablet Take 2 tablets (500 mg total) by mouth 1 (one) time each day for 1 day, THEN 1 tablet (250 mg total) 1 (one) time each day for 4 days. 6 each 5 07/20/19 25 Active Problems Problem Noted Date Diagnosed Date Hyperglycemia 11/12/2022 Parkinson disease ([facility] V24, [facility] V28) Scrotal cyst 05/25/2020 Overview (03/24/2024): Numerous on [...] Encounters Date Type Department Care Team Description 08/04/2024 Telephone Adult Medicine [place] [address] [phone] Nataliia Mckeon MD Referral (Josie Beauchamp [facility] [id number]) 08/04/[address] [phone] Nataliia Mckeon MD Referral ([facility]) 07/14/2024 11:15 AM EDT Office Visit [address] [phone] Nataliia Mckeon MD Hyperglycemia (Primary Dx); Acute paronychia of finger, right; Parkinson's disease without dyskinesia or fluctuating manifestations (CMS/HCC V24, CMS/HCC V28); Anxiety and depression; PND (post-nasal drip) 07/14/[address] [phone] Nataliia Mckeon MD finger swelling; Blister 06/20/2024 Telephone Gastroenterology [facility] 175 [facility] [address] [phone] Maxim Crawford PA 06/18/2024 2:20 PM EST Consult Gastroenterology [facility] 175 [facility] [address] [phone] Maxim Crawford PA Irritable bowel syndrome with constipation (Primary Dx); Straining with stools 06/11/[address] [phone] Nataliia Mckeon MD Referral (Physical Therapy) 05/24/2024 1:00 PM EST Office Visit [address] [phone] Nataliia Mckeon MD Hyperglycemia (Primary Dx); Gastroesophageal reflux disease, unspecified whether esophagitis present; Parkinson's disease without dyskinesia or fluctuating manifestations (CMS/HCC V24, CMS/HCC V28); Depression, unspecified depression type; Frequent urination; Irritable bowel syndrome with constipation 05/24/2024 Telephone Adult Medicine [facility] [address] [place] [phone] Nataliia Mckeon MD Referral (Neurology-Faviola Bean MD) 05/24/2024 Telephone Adult Medicine [facility] [address] [place] [phone] Nataliia Mckeon MD Referral (Physical Therapy) from Last 3 Months Immunizations Name Administration [...] History Surgery Date Site/Laterality Comments VASECTOMY PROCEDURE: [place] VASECTOMY UNI/BI SPX W/POSTOP SEMEN EXAMS NASAL SEPTUM SURGERY PROCEDURE: NC REPAIR NASAL SEPTAL PERFORATIONS; COMMENT: 2 operations TONSILLECTOMY PROCEDURE: HISTORICAL TONSILLECTOMY; COMMENT: 1960 UPPER GASTROINTESTINAL ENDOSCOPY 05/24/2004 PROCEDURE: NC UPPER GI ENDOSCOPY PERFORMED; COMMENT: Negative COLONOSCOPY [...] likely epidydimal cysts vs spermatoceles Parkinson disease (CMS/HCC V 24, CMS/HCC V28) 06/11/2021 DX:Parkinson disease (HCC) Family History Medical History Relation Name Comments Breast cancer Aunt 1 maternal aunt; bilateral Breast cancer Aunt 2 paternal aunt Breast cancer Aunt 3 paternal aunt Breast cancer Aunt 4 maternal aunt; unilateral Other: thyroid cancer Brother 1 04/2019 Other: neoblastoma Brother 2 Leukemia Brother 3 Leukemia Brother 4 Other cancer Brother 5 thyroid Leukemia Daughter 1 Other: Other Father 66, pa ncreatitis, [place] Breast cancer Maternal Grandmother bilate ral; age [...] Date Smoking Tobacco: Never Smokeless Tobacco: Never Tobacco Cessation:Counseling Given: Not Answered Alcohol Use Standard Drinks/Week Comments Yes 0 (1 standard drink = 0.6 oz pur e alcohol) Sex and Gender Information Value Date Recorded Sex Assigned at Not on file Legal Sex Male 1:35 PM EST Gender Identity Not on file Sexual Orientation Not on file Obstetrics History Last Filed Vital Signs Vital Sign Reading Time Taken Comments Blood Pressure 92/64 07/14/2024 11:19 AM EDT Pulse 52 07/14/2024 11:19 AM EDT Temperature 36.1 ??C (96.9 ??F) 07/14/2024 11:19 AM E DT Respiratory Rate 20 07/14/2024 11:19 AM EDT Oxygen Saturation - - Inhaled Oxygen Concentration - - Weight 73.5 kg (162 lb) 07/14/2024 11:19 AM EDT Height 170.2 cm (5' 7 ) 07/14/2024 11:19 AM EDT Body Mass Index 25.37 07/14/2024 11:19 AM EDT Plan of Treatment Upcoming Encounters Date Type Department Care Team (Late st Contact Info) Description 10/25/2024 10:00 AM EDT Office Visit Adult Medicine [facility] [address] [place], [place] [phone] Shane Miller NP [address] [place], [place] Health Maintenance Due Date Last Done Comments Falls Risk Assessment 04/06/2022 Social Influencers of Health Screening 04/06/2022 COVID-19 Vaccine ( season) 2024 02/23/2024, 03/21/2023, 02/04/2022, Additional history exists DTaP,Tdap,and Td Vaccines (4 - Td or Tdap) 10/26/2024 10/26/2014, 08/11/2008, 06/12/2000 Depression Screening 11/19/2024 11/20/2023 Medicare Annual Wellness Visit 11/19/2024 11/20/2023 Colorectal Cancer Screening: Colonoscopy 03/10/2025 03/10/2020 Cholesterol Screening (Lipid Panel) 06/14/2026 06/14/2021 Hepatitis C Screening Completed 10/22/2012 Pneumococcal Vaccine: 50+ Years Completed 04/12/2014, 10/04/2011 Zoster Vaccines Completed 12/15/2020, 09/26, 10/04/2011 RSV Immunization Adult Patients Completed 02/28/2023 Influenza Vaccine Completed 02/06/2024, , 01/30/2022, Additional history exists HIB Vaccines Aged Out No longer eligi [...] patient's age to complete this topic Meningococcal B Vaccine Aged Out No l onger eligible based on patient's age to complete [...] Health Maintenance Results * Depression Screening (11/20/2023) Depression Screening abstracted [facility] Provider HEALTH MAINTENANCE Final Result * Lipid panel (06/14/2021) Pathologist [facility] LDL/HDL Ratio 3 0 - 4 Triglycerides 96 0 - 150 mg/dL Cholesterol 140 0 - 200 mg/dL HDL 45 >=40 mg/dL LDL Cholesterol 76 0 - 100 mg/dL Blood Venous blood specimen / Unknown [facility] Provider LAB BLOOD ORDERABLES Sheyla l Result * Colonoscopy (03/10/2020) Pathologist [facility] Colonoscopy abnormal, abstracted Anatomical Region Laterality Modality Other [facility] Provider HEALTH MAINTENANCE Final Result * Hepatitis C Screening (10/22/2012) Pathologist [facility] Hepatitis C Screening abstracted [facility] Provider HEALTH MAINTENANCE Final Result from Last 3 Months or Most Recently Relevant to Health Maintenance Insurance [employer] [facility] Care Teams Cephalometric Tracer Relationship Specialty Start Date End Date Nataliia Mckeon MD [address] [place] [address] PCP - General Internal Medicine 10/24/20
--- OUTSIDE RECORDS SUMMARY | 2024-08-10 12:25 | XMS_ITS | Encounter Summary ---
Author Organization [facility] Address [address] [place] [address] Care Team Providers Care Music Composer Name Role Phone Nataliia Mckeon MD Primary Care Provider [phone] Reason for Referral * Consultation (Routine) - Pending Review Specialty Diagnoses / Procedures Referred By Ayanna ribeiro Referred To Contact Ophthalmology Diagnoses Encounter for examination of eyes and vision without abnormal findings Nataliia Mckeon MD [address] [place] [address] Phone: tel: fax: Josie Beauchamp MD [facility] [address] [place] [address] Phone: tel: fax: Referral ID Status Reason Start Date Expiration Date Visits Requested Visits Authorized [id number] Pending Review Specialty Services Required 08/09/2024 08/09/2025 1 1 Scheduling Instructions Name of person calling to request this referral? Patient Referred To Provider (Include first and last name): Josie Beauchamp NPI (if known): Order/Specialty requested Opthalmology Chief Complaint (Note: This is not a body part or a procedure): Eye Exam Has the patient seen provider for this problem/Dx before? Yes Referred To Provider Address: [address] [place] [address] Referred To Provider Referred To Provider Does patient have an appointment scheduled?: Yes If yes, what is the date of the appointment?: 09/22/24 Is this a retro request? No Number of visits requested: 6 Is this appointment related to: MVA or worker compensation? No Reason for Visit * Reason Onset Date Comments Referral 08/04/2024 Josie HERNANDEZ [id number] Encounter Details Date Type Department Care Team (Late st Contact Info) Description 08/04/2024 Telephone Adult Medicine [address] [address] Nataliia Mckeon MD [address] [place] [address] Referral (Josie HERNANDEZ [id number]) Social History Tobacco Use Types Packs/Day Years [...] as of this encounter Progress Notes * Selena Nance MA - 08/04/2024 1:50 PM EDT What insurance does the patient have today? Payor: [facility] Referrals cannot be processed if the insurance is not accurate. If the insurance listed above is NO BILLING INFORMATION FOUND FOR THIS ENCOUNTER then the patients correct insurance must be obtainedand registered in [facility] or their referral can not be processed. Name of person calling to request this referral? Patient Referred To Provider (Include first and last name): Josie Beauchamp NPI (if known): Order/Specialty requested Opthalmology Chief Complaint (Note: This is not a body part or a procedure): Eye Exam Has the patient seen provider for this problem/Dx before? Yes Referred To Provider Address: [address] [place] [address] Referred To Provider Referred To Provider Does patient have an appointment scheduled?: Yes If yes, what is the date of the appointment?: 09/22/24 Is this a retro request? No Number of visits requested: 6 Is this appointment related to: MVA or worker compensation? No documented in this encounter Plan of Treatment Upcoming Encounters Date Type Department Care Team (Late st Contact Info) Description 10/25/2024 10:00 AM EDT Office Visit Adult Medicine [facility] [address], [place] [phone] Shane Miller NP [address], [place] Scheduled Referrals Name Type Priority Associated Diagnoses Order Schedule Ambulatory referral to Ophthalmology Outpatient Referral Routine Encounter for examination of eyes and vision without abnormal findings Ordered: 08/09/2024 documented as of this encounter Visit Diagnoses Diagnosis Encounter for examination of eyes and vision without abnormal findings- Primary documented in this encounter Care Teams Music Composer Relationship Specialty Start Date End Date Nataliia Mckeon MD [address] [place] [address] PCP - General Internal Medicine 10/24/20 documented as of this encounter
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
--- OUTSIDE RECORDS SUMMARY | 2024-08-10 12:25 | XMS_ITS | Encounter Summary ---
Author Organization [facility] Address [address] [place] [address] Care Team Providers Care Halfway House Counselor Name Role Phone Nataliia Mckeon MD Primary Care Provider [phone] Reason for Visit * Reason Onset Date Comments Referral 08/04/2024 [facility] Encounter Details Date Type Department Care Team ([facility] st Contact Info) Description 08/04/[address] [facility] [address] [place] [address] Nataliia Mckeon MD [address] [place] [address] Referral ([facility]) Social History Tobacco Use Types Packs/Day Years [...] Notes * Selena Nance MA - 08/04/2024 1:43 PM EDT What insurance does the patient have today? Payor: [facility] Referrals cannot be processed if the insurance is not accurate. If the insurance listed above is NO BILLING INFORMATION FOUND FOR THIS ENCOUNTER then the patients correct insurance must be obtainedand registered in [facility] or their referral can not be processed. Name of person calling to request this referral? Patient Referred To Provider (Include first and last name): Marva Turpin PA-C NPI (if known): [id number] Order/Specialty requested Dermatology Chief Complaint (Note: This is not a body part or a procedure): Skin Check Has the patient seen provider for this problem/Dx before? Yes Referred To Provider Address: [address] [place] [address] [address] [place] [address] Referred To Provider Referred To Provider Does patient have an appointment scheduled?: Yes If yes, what is the date of the appointment?: 08/31/24 Is this a retro request? No Number of visits requested: 6 Is this appointment related to: MVA or worker compensation? No documented in this encounter Plan of Treatment Upcoming Encounters Date Type Department Care Team (Late st Contact Info) Description 10/25/2024 10:00 AM EDT Office Visit Adult Medicine [facility] [address] [place] [address] Shane Miller NP [address] [place], [place] documented as of this encounter Visit Diagnoses Diagnosis Skin exam, screening for cancer- Primary Screening for malignant neoplasm of the skin documented in this encounter Care Teams Halfway House Counselor Relationship Specialty Start Date End Date Nataliia Mckeon MD [address] [place] [address] PCP - General Internal Medicine 10/24/20 documented as of this encounter
--- OUTSIDE RECORDS SUMMARY | 2024-08-10 12:25 | XMS_ITS | Encounter Summary ---
Author Organization [facility] Address [address] [place] [address] Care Team Providers Care Drill Runner Name Role Phone Nataliia Mckeon MD Primary Care Provider [phone] Reason for Visit * Reason Onset Date Comments Referral 05/24/2024 Neurology-Faviola dominguez MD Encounter Details Date Type Department Care Team ([facility] st Contact Info) Description 05/24/2024 Telephone Adult Medicine [facility] [address] [place] [address] Nataliia Mckeon MD [address] [place] [address] Referral (Neurology-Faviola Bean MD) Social History Tobacco Use Types Packs/Day Years [...] Notes * Selena Nance MA - 08/04/2024 1:40 PM EDT Patient calling on status states his appt is 09/27/24. * Denise Mays - 05/24/2024 2:53 PM EST Referral Request: What insurance does the patient have today? Payor: MEDICARE / Plan: MEDICARE PART A & B / Product Type: Medicare / Referrals cannot be processed if the insurance is not accurate. If the insurance listed above in red is NO BILLING INFORMATION FOUND FOR THIS ENCOUTNER The patients correct insurance must be obtained and registered in [facility] or their referral can not be processed. Is this a retro request? no. If yes for what date of service do you need the retro referral? not applicable Who is calling to request this referral? Patient If the caller is not the patient, what is their name? not applicable Ask the patient WHO referred them to this specialty: Nataliia Mckeon MD FIRST and LAST NAME of SPECIALIST PATIENT is seeing: Faviola Bean MD What specialty is this? Neurology DIAGNOSIS Patient is being seen for (Not a body part or a procedure): gait disturbance and right hand tremors Have you seen this SPECIALIST for this PROBLEM/DX before? If YES, when? Yes. unknown Have you checked REVIEW or the APPT DESK to see if this referral has already been done or has visits left? yes Is this visit: Follow Up Address of Specialist: [address] [place] [address] Phone # of Specialist: Fax #: (if applicable): Does patient have an appointment scheduled?: unknown Date of appointment- (including a retro-request): Is this appointment related to: Not MVA, worker compensation, or surgery related documented in this encounter Plan of Treatment Upcoming Encounters Date Type Department Care Team (Late st Contact Info) Description 10/25/2024 10:00 AM EDT Office Visit Adult Medicine [facility] [address] [place] [address] Shane Miller NP [address], [place] documented as of this encounter Visit Diagnoses Diagnosis Parkinson disease (CMS/HCC V24, CMS/HCC V28)- Primary Paralysis agitans documented in this encounter Care Teams Drill Runner Relationship Specialty Start Date End Date Nataliia Mckeon MD [address] [place] [address] PCP - General Internal Medicine 10/24/20 documented as of this encounter
[2024-08-10 14:04] LABS: Prostate Specific Antigen 2.09 ng/mL (<0.05-4.0)
== END 2024-08-10 10:21 | disposition home or self-care (01) ==
LOC: HO.US 10:20
PROVIDERS: PCP Internal Medicine; Visit Provider Nurse Practitioner Family
DX: R35.0 Frequency of micturition (principal); R39.15 Urgency of urination; R39.89 Other symptoms and signs involving the genitourinary system; Z12.5 Encounter for screening for malignant neoplasm of prostate
CPT/HCPCS: 36415; 76770; 84153

== ENCOUNTER → 2024-08-10 10:25 | Outpatient (BNV) | payer OTHER, SELFPAY | PROVIDERS: PCP Internal Medicine; Visit Provider Radiology Diagnostic Radiology | DX: R35.0 Frequency of micturition (principal); N28.1 Cyst of kidney, acquired | CPT/HCPCS: 76770 ==

== ENCOUNTER 2024-08-24 14:12 | Outpatient (AMB) | payer OTHER, SELFPAY ==
--- NOTE | 2024-08-24 14:17 | A.OFFVIS_ITS ---
Intake Visit Reasons: 3m/PSA/US(set) Intake Note: Patient presents today for follow up on: Urinary Frequency , frequency, ultrasound psa lab results Imaging Completed: 08/10/24 PSA: 2.09 Urology Medication: Tamsulosin Antibiotic Allergies:None Blood Thinners: Asprin PVR: 0ml's Fabrication Technician Required: No Accompanied by: Self / Same As Patient Allergies No Known Allergies Allergy (Verified 08/24/24 14:33) HPI Comments Details: Mairo is a very pleasant 78-year-old male patient of Dr. Mckeon. He has a past medical history of urinary frequency, cataracts, depression, anxiety, and Parkinson's disease. He presents to the office today for follow-up. Of note, patient was seen approximately 3 months ago as a new patient for ongoing lower urinary tract symptoms at which time a retroperitoneal ultrasound was ordered as well as a PSA in the patient was started on Flomax. In discussion with the patient today he reports noting somewhat improvement in urinary urgency and urinary frequency he had been experiencing with 0.4 mg of Flomax. He is enquiring and increase in dose as he feels symptoms have improved however can continue to improve. Recent retroperitoneal ultrasound 08/20 notes bilateral kidneys with no hydronephrosis or renal calculi. Right kidney with 2.4 cm upper pole cyst. Left kidney with 1.8 upper pole mildly complex renal cyst and follow-up is recommended per radiology report. The prostate measures approximately 50 mL. In office urinalysis results reviewed with the patient today. PVR 0 mL. Recent PSA results 08/20 2.1. We discussed at length correlation of Parkinson's disease and lower urinary tract symptoms. Will increase Flomax to 2 capsules per day. We also discussed potential near future in office urodynamics and or cystoscopy if symptoms persist and/or worsen. He otherwise offers no other issues or concerns at this time. Plan I will increase the dosage of tamsulosin Flomax) to better manage the symptoms of Benign Prostatic Hyperplasia. I am recommending an MRI to further evaluate the complex cyst in the left kidney for further assessment evaluation. The patient is informed of the plans and agrees to further imaging to alleviate concerns and provide documented comparisons for future evaluations. Patient was informed and verbally consented to the use of an ambient scribe for clinic note documentation during this visit. Discussion Notes During the visit, I discussed with the patient the findings related to his benign prostatic hyperplasia and the utility of increasing his Flomax dosage. P otential side effects and benefits of this adjustment were reviewed. We agreed on the need for an MRI to better characterize the cystic lesion and ensure no worrisome features. He was receptive to this plan, acknowledging the rationale discussed. [facility] Medical History Urinary frequency Cataract Depression Anxiety REM behavioral disorder Parkinsons disease Surgical History Vasectomy status History of tonsillectomy Family History Mother Breast cancer Brother Thyroid cancer Leukemia Sister Colon cancer Social History Alcohol intake: current Alcohol intake frequency: holidays/special occasions only Patient Tobacco Use Status: Never used Tobacco Review of Systems Const All systems reviewed & are unremarkable except as noted in HPI and below Physical Exam Const General: cooperative, healthy appearing, comfortable, no acute distress, well developed, alert and awake Orientation/consciousness: patient oriented x3 Limitations: no limitations HEENT Head: Yes normal to inspection, Yes normocephalic and Yes atraumatic Ears: hearing grossly normal bilaterally Eyes General: appearance normal, both eyes and all related structures Neck Neck: Yes normal visual inspection and Yes trachea midline Chest Chest palpation & inspection: normal inspection of the chest Resp Effort & Inspection: normal respiratory effort and able to speak in complete sentences Cardio Rate: regular rate GI Inspection: Yes normal to inspection General: Yes no CVA tenderness Back/Spine/Pelvis Back: no CVA tenderness Skin General skin exam: no rashes or lesions noted Neuro General: patient oriented x3 Extrem General: Yes normal to inspection Psych Appearance: grossly normal and well kempt Mental Status: mental status grossly normal Speech and movement: Normal speech and movement present and Clear speech present Affect: normal affect Attitude: cooperative Thought process: Normal thought process present Thought content: Normal thought content present Insight: Fair insight present (Psych) Judgement: Fair judgement present (Psych) Office Procedures Post Void Residual Post Residual Void Post Void Residual (PVR): 0 [id number] Void Residual by ultrasound Results AMB Urinalysis, Automated UA Leukoctes 0 Yon/uL Last Edit by [employer] on 08/24/24 14:35 UA Nitrite Last Edit by [employer] on 08/24/24 14:35 UA Urobilinogen 0.2 mg/dL Last Edit by [employer] on 08/24/24 14:35 UA Protein 0 mg/dL Last Edit by [employer] on 08/24/24 14:35 UA pH 6.0 Last Edit by [employer] on 08/24/24 14:35 UA Blood 10 Jaspreet/uL Last Edit by [employer] on 08/24/24 14:35 UA Specific Central 1.005 Last Edit by [employer] on 08/24/24 14:35 UA Ketone Last Edit by [employer] on 08/24/24 14:35 UA Bilirubin 0 mg/dL Last Edit by [employer] on 08/24/24 14:35 UA Glucose 0 mg/dL Last Edit by [employer] on 08/24/24 14:35 Results Reviewed Results Reviewed: Laboratory Last Values Urine pH (Auto) 6.0 08/24/24 14:34 Specific Central (Auto) 1.005 08/24/24 14:34 Urine Protein (Auto) 0 mg/dL 08/24/24 14:34 Glucose (UA)(Auto) 0 mg/dL 08/24/24 14:34 Urine Blood (Auto) 10 Jaspreet/uL 08/24/24 14:34 Urine Bilirubin (Auto) 0 mg/dL 08/24/24 14:34 Urine Urobilinogen (Auto) 0.2 mg/dL 08/24/24 14:34 Leukocyte Esterase (Auto) 0 Yon/uL 08/24/24 14:34 Date of Service: 08/10/24 Procedure(s): US retroperitoneal comp FINDINGS: Right kidney: The right kidney measures 10.9 x 5.4 x 4.8 cm. Renal parenchymal echotexture and thickness are normal. There is a 2.4 x 2.1 x 1.9 cm cyst at the upper pole. There is no hydronephrosis or renal calculi. Left Kidney: The left kidney measures 11.0 x 5.1 x 4.1 cm. Renal parenchymal echotexture and thickness are normal. There is a 1.8 x 1.3 x 1.1 cm cyst at the upper pole demonstrating an internal calcification. There is an additional 1.1 x 0.6 x 0.6 cm cyst in the interpolar region. There is no hydronephrosis or renal calculi. The urinary bladder is unremarkable. Bilateral ureteral jets are identified. Before voiding, the urinary bladder measured 11.1 x 5.6 x 6.3 cm, for an estimated volume of 204 mL. After voiding, the urinary bladder measured 6.6 x 3.3 x 4.3 cm, for an estimated volume of 50 mL. The prostate measures 4.8 x 4.6 x 3.7 cm. IMPRESSION: 1. Bilateral renal cysts as described. The 1.8 x 1.3 x 1.1 cm cyst at the upper pole of the left kidney is mildly complicated, and follow-up is recommended. 2. Post void bladder residual of 50 mL. Assessment & Plan Assessment & Plan (1) Complex renal cyst: Code(s): N28.1 - Cyst of kidney, acquired Category: Medical Plan In office urinalysis results reviewed with the patient today; as noted above. PVR 0 mL. Will increase Flomax to 2 capsules per day as discussed and prescribed; refill provided. Patient reports somewhat improvement in lower urinary tract symptoms with 0.4 mg of Flomax. We discussed classifications of renal cyst; we discussed obtaining MRI renal mass protocol for further assessment evaluation. Recent PSA results reviewed with the patient today; as noted above. Recent retroperitoneal ultrasound results reviewed with the patient today; as noted above. Follow-up in 1-3 months with imaging and PVR; or sooner with any issues, concerns, and or questions. Orders: Orders AMB Urinalysis Automated Today Z13.9 - Encounter for screening, unspecified AMB Post Void Residual by ultrasound Today R39.15 - Urgency of urination MR abdomen wo/w con Today N28.1 - Cyst of kidney, acquired Medications: Changed From tamsulosin 0.4 mg PO BEDTIME 30 days 30 caps 3RF N40.1 - Benign prostatic hyperplasia with lower urinary tract symptoms, R35.1 - Nocturia To tamsulosin 0.8 mg (2 x 0.4 mg) PO BEDTIME 90 days 180 caps 1RF N40.1 - Benign prostatic hyperplasia with lower urinary tract symptoms, R35.1 - Nocturia Patient Instructions: The patient had an opportunity to ask questions regarding the treatment plan. All questions were answered. Physical exam, labs, and imaging were discussed and reviewed in detail. As well as risks, benefits, and discussion of treatment choices. No major barriers to understanding were identified. The patient expressed understanding and agreement with the above treatment plan. The patient was made aware they should contact our office by phone for worsening of their current condition, the appearance of new symptoms, or with any questions or concerns. Compliance is encouraged with any medications and follow up testing that is ordered. It is a privilege to be allowed the opportunity to participate in? your urological care.? Again, if you have any questions or concerns If you have any questions or concerns please do not hesitate to contact me. The office is [phone]. This note is constructed using voice recognition software. While every effort has been made to ensure accuracy drywall taper errors may have been included. Yours sincerely, MEGAN Rodriguez Coding Level of Care Code Est Pt Level 3 (02079) Diagnoses Complex renal cyst N28.1 CPT Codes Post Residual Void - PVR CPT Code: 45065-Lygu Void Residual by ultrasound ([id number])
--- OUTSIDE RECORDS SUMMARY | 2024-08-24 16:26 | XMS_ITS | Clinical Summary ---
Author Organization [facility] Address [address] [place] [address] Phone Care Team Providers Care Karate Instructor Name Role Phone Nataliia Mckeon MD Primary Care Provider [phone] Allergies Active Allergy Reactions Criticality Noted Date Comments Amoxicillin Trihydrate Rash High 09/03/2005 Cephalexin Monohydrate Rash High 09/03/2005 Medications aspirin 81 mg chewable tablet Take 1 Tablet by mouth once. 3 times weekly 08/16/2010 Active carbidopa-levod opa (SINEMET) 25-100 mg per [...] Plus) 1.1 % paste Historic 08/26/2022 Active FLUoxetine (PROzac) 20 mg capsule Take 1 capsule (20 mg total) by mouth 1 (one) time each day. 30 each 5 05/24/2024 11/21/19 25 Active clonazePAM (KlonoPIN) 0.5 mg tablet 1 tablet (0.5 mg total) at bedtime. 06/15/2024 Active tamsulosin (FLOMAX) 0.4 mg 24 hr capsule Take 1 capsule (0.4 mg total) by mouth 1 (one) time each day. 06/15/2024 Active docusate sodium (Colace) 100 mg capsule Take 1 capsule (100 mg total) by mouth 2 (two) times a day. 60 each 11 06/18/2024 Active simethicone (Mylanta Gas) 125 mg chewable tablet Chew 1 tablet (125 mg total) every 6 (six) hours if needed for flatulence. 30 tablet 11 06/18/2024 Active loratadine (CLARITIN) 10 mg tablet Take 1 tablet (10 mg total) by mouth 1 (one) time each day. 30 each 5 07/14/2024 01/11/20 25 Active Active Problems Problem Noted Date Diagnosed Date Renal cyst 08/13/2024 Overview (08/13/2024): Per ultrasound in the ER July 2024, from the [facility] ER. Bilateral. Left upper pole cyst appears to be complicated . Follow-up advised. Hyperglycemia 11/12/2022 Parkinson disease ([facility]/HCC V24, CMS/HCC V28) Scrotal cyst 05/25/2020 Overview (03/24/2024): Numerous [...] Care Team Description 08/04/2024 Telephone Adult Medicine [address] [place] [phone] Nataliia Mckeon MD Referral ([facility] [id number]) 08/04/2024 Telephone Adult Medicine [address] [phone] Nataliia Mckeon MD Referral ([facility]) 07/14/2024 11:15 AM EDT Office Visit Adult [address] [phone] Nataliia Mckeon MD Hyperglycemia (Primary Dx); Acute paronychia of finger, right; Parkinson's disease without dyskinesia or fluctuating manifestations (CMS/HCC V24, CMS/HCC V28); Anxiety and depression; PND (post-nasal drip) 07/14/[address] [phone] Nataliia Mckeon MD finger swelling; Blister 06/20/2024 Telephone Gastroenterology [facility] 175 [facility] [address] [phone] Maxim Crawford PA 06/18/2024 2:20 PM EST Consult Gastroenterology [facility] [address] [phone] Maxim Crawford PA Irritable bowel syndrome with constipation (Primary Dx); Straining with stools 06/11/2024 Telephone Adult Medicine [address] [phone] Nataliia Mckeon MD Referral (Physical Therapy) from [...] History Surgery Date Site/Laterality Comments VASECTOMY PROCEDURE: [place] VASECTOMY UNI/BI SPX W/POSTOP SEMEN EXAMS NASAL SEPTUM SURGERY PROCEDURE: RI REPAIR NASAL SEPTAL PERFORATIONS; COMMENT: 2 operations TONSILLECTOMY PROCEDURE: HISTORICAL TONSILLECTOMY; COMMENT: 1960 UPPER GASTROINTESTINAL ENDOSCOPY 05/24/2004 PROCEDURE: RI UPPER GI ENDOSCOPY PERFORMED; COMMENT: Negative COLONOSCOPY [...] 1 Other: Other Father 66, pa ncreatitis, [place] Breast cancer Maternal Grandmother bilate ral; age [...] 10:00 AM EDT Office Visit Adult Medicine [facility] [address] [place], [place] [phone] Shane Miller NP [address], [place] 03/10/2025 10:00 AM EST Appointment [facility] Endoscopy [address] [place] [address] Anali Patel MD [address] [address] Health Maintenance Due Date Last Done Comments [...] Procedure Name Priority Date/Time Associated Diagnosis Comments EXTERNAL CLINICAL LAB 08/10/2024 EXTERNAL ULTRASOUND REPORT 08/10/2024 EXTERNAL ULTRASOUND REPORT 08/10/2024 DEPRESSION SCREENING Routine 11/20/2023 LIPID PANEL Routine 06/14/2021 COLONOSCOPY Routine 03/10/2020 HEPATITIS C SCREENING Routine 10/22/2012 from Last 3 Months or Most Recently Relevant to Health Maintenance Results * External Ultrasound Report (08/10/2024) Only the most recent of2 resultswithin the time period is included. Anatomical Region Laterality Modality Ultrasound Provider [facility] US PROCEDURES Final Result * External clinical lab (08/10/2024) Provider [facility] LAB BLOOD ORDERABLES Fin al Result * Depression Screening (11/20/2023) Pathologist [facility] Depression Screening abstracted Result [facility] Provider HEALTH MAINTENANCE Final Result * Lipid panel (06/14/2021) [facility] LDL/HDL Ratio 3 0 - 4 Triglycerides 96 0 - 150 mg/dL Cholesterol 140 0 - 200 mg/dL HDL 45 >=40 mg/dL LDL Cholesterol 76 0 - 100 mg/dL Blood Venous blood specimen / Unknown Result [facility] Provider LAB BLOOD ORDERABLES Sheyla l Result * Colonoscopy (03/10/2020) [facility] Colonoscopy abnormal, abstracted Anatomical Region Laterality Modality Other Result [facility] Provider HEALTH MAINTENANCE Final Result * Hepatitis C Screening (10/22/2012) [facility] Hepatitis C Screening abstracted Result [facility] Provider HEALTH MAINTENANCE Final Result from Last 3 Months or Most Recently Relevant to Health Maintenance Insurance [employer]AN [facility] Care Teams Karate Instructor Relationship Specialty Start Date End Date Nataliia Mckeon MD [address] [place] [address] PCP - General Internal Medicine 10/24/20
== END 2024-08-24 15:12 | disposition home or self-care (01) ==
LOC: HO.HUSH 14:13
PROVIDERS: PCP Internal Medicine; Visit Provider Nurse Practitioner Family
DX: Z13.9 Encounter for screening, unspecified (principal); N28.1 Cyst of kidney, acquired
CPT/HCPCS: 99213

== ENCOUNTER → 2024-08-24 14:12 | Outpatient (BNVA) | payer OTHER, SELFPAY | PROVIDERS: PCP Internal Medicine; Visit Provider Nurse Practitioner Family | DX: N28.1 Cyst of kidney, acquired (principal) | CPT/HCPCS: 51798; 81003; 99212 ==

== ENCOUNTER 2024-10-01 13:38 | Outpatient (AMB) | payer OTHER, SELFPAY ==
--- OUTSIDE RECORDS SUMMARY | 2024-10-01 13:41 | XMS_ITS | Clinical Summary ---
Author Organization [facility] Address [address] [place] [address] Phone Care Team Providers Care Firer Kiln Name Role Phone Nataliia Mckeon MD Primary Care Provider [phone] Allergies Active Allergy Reactions Criticality Noted Date [...] in the ER July 2024, from the [facility] ER. Bilateral. Left upper pole cyst appears to be complicated . Follow-up advised. Hyperglycemia 11/12/2022 Parkinson disease ([facility]/HCC V24, CMS/HCC V28) Scrotal cyst 05/25/2020 Overview [...] Care Team Description 08/04/2024 Telephone Adult Medicine [address] [place] [phone] Nataliia Mckeon MD Referral ([facility] ) 08/04/2024 Telephone Adult Medicine [address] [phone] Nataliia Mckeon MD Referral ([facility]) 07/14/2024 11:15 AM EDT Office Visit Adult Medicine [address] [phone] Nataliia Mckeon MD Hyperglycemia (Primary Dx); Acute paronychia of finger, right; Parkinson's disease without dyskinesia or fluctuating manifestations (CMS/HCC V24, CMS/HCC V28); Anxiety and depression; PND (post-nasal drip) 07/14/2024 Telephone Adult [address] [phone] Nataliia Mckeon MD finger swelling; Blister from Last 3 Months Immunizations Name Administration [...] History Surgery Date Site/Laterality Comments VASECTOMY PROCEDURE: [place] VASECTOMY UNI/BI SPX W/POSTOP SEMEN EXAMS NASAL SEPTUM SURGERY PROCEDURE: HI REPAIR NASAL SEPTAL PERFORATIONS; COMMENT: 2 operations TONSILLECTOMY PROCEDURE: HISTORICAL TONSILLECTOMY; COMMENT: 1960 UPPER GASTROINTESTINAL ENDOSCOPY 05/24/2004 PROCEDURE: [place] UPPER GI ENDOSCOPY PERFORMED; COMMENT: Negative COLONOSCOPY [...] 1 Other: Other Father 66, pa ncreatitis, [place] Breast cancer Maternal Grandmother bilate ral; age [...] Care Team (Late st Contact Info) Description 10/27/2024 11:00 AM EDT Office Visit Adult Medicine [facility] [address] [place], [place] [phone] Shane Miller NP [address] [place], [place] 03/10/2025 10:00 AM EST Appointment [facility] Endoscopy [address] [place] [phone] Anali Patel MD [address] [address] Health Maintenance Due Date Last Done Comments [...] is included. Anatomical Region Laterality Modality Ultrasound us Provider [facility] US PROCEDURES Final Result * External clinical lab (08/10/2024) us Provider [facility] LAB BLOOD ORDERABLES Fin al Result * Depression Screening (11/20/2023) Pathologist [facility] Depression Screening abstracted us Historical Provider HEALTH MAINTENANCE Final Result * Lipid panel (06/14/2021) LDL/HDL Ratio 3 0 - 4 Triglycerides 96 0 - 150 mg/dL Cholesterol 140 0 - 200 mg/dL HDL 45 >=40 mg/dL LDL Cholesterol 76 0 - 100 mg/dL Blood Venous blood specimen / Unknown [facility] Provider LAB BLOOD ORDERABLES Sheyla l Result * Colonoscopy (03/10/2020) Pathologist [facility] Colonoscopy abnormal, abstracted Anatomical Region Laterality Modality Other [facility] Provider HEALTH MAINTENANCE Final Result * Hepatitis C Screening (10/22/2012) Pathologist [facility] Hepatitis C Screening abstracted [facility] Provider HEALTH MAINTENANCE Final Result from Last 3 Months or Most Recently Relevant to Health Maintenance Insurance MEDICARE FAMILY HE[employer] PLAN [facility] Care Teams Firer Kiln Relationship Specialty Start Date End Date Nataliia Mckeon MD [address] [place] [address] PCP - General Internal Medicine 10/24/20
[2024-10-01 13:42] VITALS: BP 118/68; PULSE 51; O2SAT 98; BMI 25.1
--- NOTE | 2024-10-01 13:42 | MHC.OFFVIS ---
Vital Signs 10/01/24 13:42 Height 5 ft 8 in Weight 165 lb BMI 25.1 BP 118/68 Blood Pressure Location Rt brachial Position Sitting Pulse 51 Pulse Source Pulse Oximeter Pulse Oximetry (%) 98 Oxygen Delivery Method Room Air Intake Visit Reasons: F/u RESCHED Intake Note: Patient presents for follow up parkinsons. med adjustment, med trial and OT referral scanned 07/28/24. Urology consult 05/19/24 Broadcast Correspondent Required: No Accompanied by: Self / Same As Patient Allergies No Known Allergies Allergy (Verified 10/01/24 13:44) Medication List - Last Reconciled 10/01/24 by Faviola Bean MD aspirin 81 mg PO DAILY carbidopa-levodopa 25-100 mg (Sinemet) 1 tab PO QID 90 days clonazepam 0.5 mg PO BEDTIME coenzyme Q10 mg PO fluoride (sodium) 1.1% (PreviDent 5000 Booster Plus) dental fluoxetine 10 mg PO DAILY glucosamine sulfate 1,000 mg PO DAILY hyoscyamine sulfate 0.125 mg PO BID-QID PRN loratadine 10 mg PO DAILY melatonin 10 mg PO BEDTIME 30 days multivitamin 1 tab PO DAILY polyethylene glycol 3350 (Miralax) 17 grams PO DAILY tamsulosin 0.8 mg (2 x 0.4 mg) PO BEDTIME 90 days dqwfprcq-eois-glcxa-oreg-capry 100 mg-150 mg- 50 mg-150 mg caps PO HPI Comments Details: 79 y/o male patient presents for follow up of Parkinson's.He feels lightheaded usually in the mornings . No falls His tremors in his Right hand are constant Balance is good. speech is lower and stutters His REM behavior disorder is better with melatonin and clonazepam. Anxiety is better with prozac. Now he reports increased bowel movements. Pt is right handed but uses left hand to eat. He states that his fine motor skills declined, can't close shirt buttons. He takes Sinemet 25/100 mg, 1 tab tid He does routine exercise and stretching. He has more trouble with fine motor coordination. Denies falls. He manages constipation with prune juice and flex seed oatmeal. [facility] Medical History (Updated 10/01/24 @ 14:03 by Faviola Bean MD) Orthostatic hypotension Urinary frequency Cataract Depression Anxiety REM behavioral disorder Parkinsons disease Surgical History Vasectomy status History of tonsillectomy Family History Mother Breast cancer Brother Thyroid cancer Leukemia Sister Colon cancer Social History Alcohol intake: current Alcohol intake frequency: holidays/special occasions only Patient Tobacco Use Status: Never used Tobacco Review of Systems ENT Reports Normal hearing present Neuro Reports Normal hearing present Physical Exam Vital Signs: Last Vital Signs Pulse 51 10/01/24 13:42 BP 118/68 10/01/24 13:42 Pulse Ox 98 10/01/24 13:42 Oxygen Delivery Method Room Air 10/01/24 13:42 BMI result Body Mass Index 25.1 Const General: cooperative and no acute distress Nutritional Appearance: average body habitus Orientation/consciousness: patient oriented x3 Neuro Other: moderate decreased facial expression and blink right UE tremors Right UE mild cogwheel rigidity FFM and foot taps decreased patrick R>L Normal posture Mild decreased arm swings r>L General: patient oriented x3 and moves all extremities Cranial nerves: Yes Bilaterally intact EOM present, Yes Normal facial strength present, Yes Midline tongue present, Yes Normal hearing present, Yes Ability to bilaterally rotate head present and Yes Ability to bilaterally elevate shoulders present Cognition (Neuro): normal cognition Motor exam (neuro): Tremors during motor activity present (right hand posturing tremor,bilateral upper arm and wrist rigidity. ) Assessment & Plan Assessment & Plan (1) Parkinsons disease: Code(s): G20 - Parkinson's disease Category: Medical Qualifiers: Dyskinesia presence: without dyskinesia Fluctuating manifestations: without fluctuating manifestations Qualified Code(s): G20.A1 - Parkinson's disease without dyskinesia, without mention of fluctuations (2) REM behavioral disorder: Code(s): G47.52 - REM sleep behavior disorder Category: Medical (3) Anxiety: Code(s): F41.9 - Anxiety disorder, unspecified Category: Medical (4) Orthostatic hypotension: Code(s): I95.1 - Orthostatic hypotension Category: Medical Plan Sinemet 25/100 mg, 1 tab qID. Start midodrine 2.5 mg bid melatonin 10mg q HS for REM behavior. clonazepam 0.5mg 1tab qhs Miralax 3-4 times a week Medications: New midodrine 1 tab qam and 1 tab at noon 2.5 mg PO BID 60 tabs 5RF Coding Level of Care Code Est Pt Level 4 (51067) Complex EM visit Add On G2211 Diagnoses Parkinson's disease without dyskinesia or fluctuating manifestations G20.A1 Dyskinesia presence: without dyskinesia Fluctuating manifestations: without fluctuating manifestations REM behavioral disorder G47.52 Anxiety F41.9 Orthostatic hypotension I95.1
== END 2024-10-01 14:12 | disposition home or self-care (01) ==
LOC: HO.HSMS 13:39
PROVIDERS: PCP Internal Medicine; Visit Provider Psychiatry & Neurology Neurology
DX: G20.A1 Parkinson's disease without dyskinesia, without mention of fluctuations (principal); G47.52 REM sleep behavior disorder; F41.9 Anxiety disorder, unspecified; I95.1 Orthostatic hypotension
CPT/HCPCS: 99214

== ENCOUNTER → 2024-10-01 13:38 | Outpatient (BNVA) | payer OTHER, SELFPAY | PROVIDERS: PCP Internal Medicine; Visit Provider Psychiatry & Neurology Neurology | DX: R35.0 Frequency of micturition (principal); G20.A1 Parkinson's disease without dyskinesia, without mention of fluctuations | CPT/HCPCS: 99212 ==

== ENCOUNTER → 2024-11-17 10:54 | Outpatient (BNV) | payer OTHER, SELFPAY | PROVIDERS: PCP Internal Medicine; Visit Provider Radiology Diagnostic Radiology | DX: D35.02 Benign neoplasm of left adrenal gland (principal) | CPT/HCPCS: 74183 ==

== ENCOUNTER 2024-11-17 10:56 | Outpatient (REF) | payer OTHER, SELFPAY ==
--- NOTE | ~2024-11-17 | MR_ITS ---
EXAMINATION: MR ABDOMEN WITHOUT THEN WITH IV CONTRAST HISTORY: N28.1 - Cyst of kidney, acquired COMPARISON: Correlation is made with a renal ultrasound dated 08/10/2024. TECHNIQUE: Axial in and out of phase T1-weighted gradient echo, axial diffusion weighted, and axial and coronal HASTE T2 with fat saturation images were obtained through the abdomen. Subsequently, fat suppressed axial and coronal T1-weighted images were obtained after the intravenous administration of 7.5 mL Gadavist. FINDINGS: Liver: There is no loss of signal intensity in the liver on opposed phase imaging to suggest steatosis. There is no enhancing liver mass. The hepatic and portal veins are patent. There is no intrahepatic biliary dilatation. Gallbladder/biliary tree: No gallstones are identified. The common bile duct is normal in caliber. No intraluminal filling defects are identified to suggest choledocholithiasis. Spleen: The spleen is unremarkable. Pancreas: There is atrophy of the pancreatic head and body. There is no enhancing pancreatic mass. The pancreatic duct is normal in caliber. Adrenals: There is a 1.2 cm left adrenal nodule which demonstrates loss of signal intensity on opposed phase imaging, compatible with an adenoma. Kidneys: There is a 2.3 x 2.1 x 2.1 cm septated cyst at the upper pole of the right kidney and a 2.2 x 1.0 x 1.1 cm septated cyst at the upper pole of the left kidney. Smaller cysts are noted bilaterally. No enhancing lesion is identified.. There is no hydronephrosis. Lymph nodes: There is no retroperitoneal lymphadenopathy in the upper abdomen. Fluid: There is no ascites in the upper abdomen. Visualized bowel: The visualized small and large bowel loops are unremarkable in appearance. Visualized bones: The visualized bones demonstrate normal marrow signal intensity. MR/MR abdomen wo/w con IMPRESSION: 1. Septated cysts at the upper poles of both kidneys measuring up to 2.3 cm on the right and 2.2 cm on the left. 2. 1.2 cm left adrenal adenoma. 3. Atrophy of the pancreatic head and body. Electronically signed by: Guillermo Garcia MD 11/17/2024 12:38 PM EDT
--- OUTSIDE RECORDS SUMMARY | 2024-11-17 11:57 | XMS_ITS | Clinical Summary ---
Author Organization [facility] Address [address] [place] [address] Phone Care Team Providers Care Customer Service Operator Name Role Phone Nataliia Mckeon MD Primary Care Provider [phone] Allergies Active Allergy Reactions Criticality Noted Date Comments Amoxicillin Trihydrate Rash High 09/03/2005 Cephalexin Monohydrate Rash High 09/03/2005 Medications aspirin 81 mg chewable tablet Chew 1 tablet (81 mg total) 1 (one) time each day. Patient Buy OTC Active carbidopa-levod opa (SINEMET) 25-100 mg per tablet Take by mouth 3 (three) times a day. Prescribed By Neurologist Dr. Salmeron Active coenzyme Q-10 10 mg capsule Take by mouth 1 (one) time each day. Active glucosam/sherri-m sm1/C/franki/bosw (GLUCOSAMINE-CH ONDROITIN 3X ORAL) Take by mouth 1 (one) time each day. Active multivitamin with minerals (Multiple Vitamin-Mineral s) tablet Take 1 tablet by mouth 1 (one) time each day. Patient Buy OTC Active melatonin 1 mg tablet Take 1 mg by mouth at bedtime. Active turmeric root extract 500 mg capsule Take by mouth 1 (one) time each day. Patient Buy OTC Active fluoride, sodium, (PreviDent 5000 Booster Plus) 1.1 % paste Historic 3 Active FLUoxetine (PROzac) 20 mg capsule Take 1 capsule (20 mg total) by mouth 1 (one) time each day. 30 each 5 5 11/21/19 25 Active clonazePAM (KlonoPIN) 0.5 mg tablet Take 1 tablet (0.5 mg total) by mouth at bedtime. Prescribed By OSMIN FROST 5 Active tamsulosin (FLOMAX) 0.4 mg 24 hr capsule Take 1 capsule (0.4 mg total) by mouth 1 (one) time each day. Prescribed by MECCA RODRIGUES NP, [facility] 5 Active docusate sodium (Colace) 100 mg [...] 30 each 5 5 01/11/20 25 Active midodrine (PROAMATINE) 2.5 mg tablet Take 1 tablet (2.5 mg total) by mouth 2 (two) times a day. Prescibed by Geneva Salmeron, Neurologist 5 Active hyoscyamine (ANASPAZ,LEVSIN ) 0.125 mg tablet Take 8 tablets (1 mg total) by mouth 1 (one) time each day at the same time. 4 Active omeprazole OTC (PriLOSEC OTC) 20 mg EC tablet Take 1 tablet (20 mg total) by mouth 1 (one) time each day. Do not crush, chew, or split. 90 tablet 1 5 Active Active Problems Problem Noted Date Diagnosed Date Renal cyst 08/13/2024 Overview (08/13/2024): Per ultrasound in the ER July 2024, from the [facility] ER. Bilateral. Left upper pole cyst appears to be complicated . Follow-up advised. 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 Overview [...] 09/03/2005 Overview (03/24/2024): Last Assessment & Plan: 1995 Encounters Date Type Department Care Team Description 11/15/2024 Telephone [facility] Cardiology [facility] [address] [place] [id number] Nataliia Mckeon MD 10/27/2024 11:00 AM EDT Office Visit Adult Medicine [address] [phone] Shane Miller NP Hypotension, unspecified hypotension type (Primary Dx); Parkinson's disease without dyskinesia or fluctuating manifestations (CMS/HCC V24, CMS/HCC V28); Benign prostatic hyperplasia with urinary hesitancy; Gastroesophageal reflux disease without esophagitis; Encounter for screening for cardiovascular disorders; Need for tetanus, diphtheria, and acellular pertussis (Tdap) vaccine from Last 3 Months Immunizations Name Administration [...] ular pertussis (Boostrix; Adacel) 7yo and older 10/27/2024,08/11/2008 Zoster Live 10/04/2011 Zoster recombinant (Shingrix ) 19yo and older 12/15/2020,10/10/2020 Surgical History Surgery Date Site/Laterality Comments VASECTOMY PROCEDURE: VT VASECTOMY UNI/BI SPX W/POSTOP SEMEN EXAMS NASAL SEPTUM SURGERY PROCEDURE: VT REPAIR NASAL SEPTAL PERFORATIONS; COMMENT: 2 operations TONSILLECTOMY PROCEDURE: HISTORICAL TONSILLECTOMY; COMMENT: 1960 UPPER GASTROINTESTINAL ENDOSCOPY 05/24/2004 PROCEDURE: VT UPPER GI ENDOSCOPY PERFORMED; COMMENT: Negative COLONOSCOPY 11/09/2001 PROCEDURE: HISTORICAL COLONOSCOPY; COMMENT: Dim tub ad x2 COLONOSCOPY 12/02/2006 PROCEDURE: HISTORICAL COLONOSCOPY; COMMENT: Negative COLONOSCOPY 02/07/2012 PROCEDURE: HISTORICAL COLONOSCOPY; COMMENT: no polyps COLONOSCOPY 02/24/2017 PROCEDURE: HISTORICAL COLONOSCOPY; COMMENT: Right colon polyps 3: Tubular adenoma 3. COLONOSCOPY 03/10/2020 PROCEDURE: HISTORICAL COLONOSCOPY; COMMENT: Diverticulosis, [...] 1 Other: Other Father 66, pa ncreatitis, [place] Breast cancer Maternal Grandmother bilate ral; age [...] drink = 0.6 oz pur e alcohol) Housing Instability Answer Date Recorde d Are you worried that in the next 2 months you may not have stable housing? No 10/26/2024 Food Access & Nutrition Answer Date Rec orded Do you have access to a vari ety of food including fruits and vegetables? Yes 10/26/2024 Access to Healthcare Answer Date Record ed Within the last 3 months, ho w many times did you visit the emergency department for your medical care? 0 10/26/2024 Health Literacy Answer Date Recorded How often do you need to hav e someone help you when you read instructions, pamphlets, or other written material from your doctor or pharmacy? Never 10/26/2024 Caregiver: How often do you need to have someone help you when you read instructions, pamphlets, or other written material from your doctor or pharmacy? Not on file 10/26/2024 Financial Risk Answer Date Recorded How hard is it for you to pa y for the very basics like food, housing, medical care, and air conditioning / heating? Not very hard 10/26/2024 Transportation Answer Date Recorded Has the lack of transportati on kept you from meetings, work, or from getting things needed for daily living? No Has the lack of transportati on kept you from medical appointments or from getting medications? No 10/26/2024 Social Isolation Answer Date Recorded How often do you feel lonely or isolated from th ose around you? Never 10/26/2024 Food Risk Answer Date Recorded Within the past 12 months we worried whether our food would run out before we got money to buy more. Never true 10/26/2024 Within the past 12 months th e food we bought just didn't last and we didn't have money to get more. Never true 10/26/2024 Dependent Care Answer Date Recorded Do you need help finding or paying for care for your loved ones. For example, early childhood lead teacher or elderly care for an older adult? No 10/26/2024 Education Answer Date Recorded Do you think completing more education or training, like finishing a GED, going to college, or learning a trade, would be helpful for you? Yes 10/26/2024 Employment and Income Answer Date Recor ded During the last four weeks, have you been actively looking for work? No 10/26/2024 Living Situation Answer Date Recorded What is your living situation? 0 10/26/2024 Sex and Gender Information Value Date Recorded Sex Assigned at Not on file Legal Sex Male 1:35 PM EST Gender Identity Not on file Sexual Orientation Not on file Obstetrics History Last Filed Vital Signs Vital Sign Reading Time Taken Comments Blood Pressure 98/60 10/27/2024 11:02 AM EDT Pulse 60 10/27/2024 11:02 AM EDT Temperature 36.4 C (97.5 F) 10/27/2024 11:02 AM EDT Respiratory Rate 14 10/27/2024 11:02 AM EDT Oxygen Saturation - - Inhaled Oxygen Concentration - - Weight 72.6 kg (160 lb) 10/27/2024 11:02 AM EDT Height 170.2 cm (5' 7 ) 10/27/2024 11:02 AM EDT Body Mass Index 25.06 10/27/2024 11:02 AM EDT Plan of Treatment Upcoming Encounters Date Type Department Care Team (Late st Contact Info) Description 03/10/2025 10:00 AM EST Appointment [facility] [address] [place] [phone] Anali Patel MD [address] [address] 03/23/2025 10:00 AM EST Office Visit [facility] - [place] [facility] [address] [phone] Kat Orlando, LIVE [address] [address] 03/30/2025 1:15 PM EST Office Visit Adult Medicine [address] [phone] Nataliia Mckeon MD [address] [place] [address] Health Maintenance Due Date Last Done Comments COVID-19 Vaccine (2023- season) 2024 02/23/2024, 03/21/2023, 02/04/2022, Additional history exists Medicare Annual Wellness Visit 11/19/2024 11/20/2023 Influenza Vaccine (#1) 2024 , 01/31/2023, 01/30/2022, Additional history exists Colorectal Cancer Screening: Colonoscopy 03/10/2025 03/10/2020 Social Influencers of Health Screening 10/26/2025 10/26/2024 Falls Risk Assessment 10/27/2025 10/27/2024 Cholesterol Screening (Lipid Panel) 10/27/2029 10/27/2024, 06/14/2021 DTaP,Tdap,and Td Vaccines (5 - Td or Tdap) 10/27/2034 10/27/2024, 10/26/2014, 08/11/2008, Additional history exists Hepatitis C Screening Completed 10/22/2012 Pneumococcal Vaccine: 50+ Years Completed 04/12/2014, 10/04/2011 Zoster Vaccines Completed 12/15/2020, 09/26, 10/04/2011 RSV Immunization Adult Patients Completed 02/28/2023 Depression Screening Completed 10/26/2024, 11/20/19 24 HIB Vaccines Aged Out No longer eligi [...] Procedure Name Priority Date/Time Associated Diagnosis Comments HEMOGLOBIN A1C Routine 10/27/2024 12:25 PM EDT Hyperglycemia THYROID STIMULATING HORMONE WITH REFLEX TO FREE T4 AND FREE T3 Routine 10/27/2024 12:25 PM EDT Irritable bowel syndrome with constipation COMPREHENSIVE METABOLIC PANEL Routine 10/27/2024 12:25 PM EDT Encounter for screening for cardiovascular disorders LIPID PANEL WITH REFLEX TO DIRECT LDL Routine 10/27/2024 12:25 PM EDT Encounter for screening for cardiovascular disorders US RETROPERITONEAL COMPLETE Routine 10/27/2024 11:52 AM EDT HM DEPRESSION SCREENING Routine 11/20/2023 COLONOSCOPY Routine 03/10/2020 HEPATITIS C SCREENING Routine 10/22/2012 from Last 3 Months or Most Recently Relevant to Health Maintenance Results * Thyroid stimulating hormone with reflex to free t4 and free t3 (10/27/2024 12:25 PM EDT) TSH 3.64 0.40 - 4.00 mcIU/mL LAB CHEMISTRY METHOD 10/27/2024 6:08 PM EDT [facility] Blood Venous blood specimen / Unknown Venipuncture / Unknown 10/27/2024 12:25 PM EDT 10/27/2024 12:25 PM EDT us Nataliia Mckeon MD LAB BLOOD ORDERABLES Final Resul t [facility] [address] [place] [address], [place] [phone] * Lipid panel with reflex to direct LDL (10/27/2024 12:25 PM EDT) Cholesterol 151 0 - 200 mg/dL LAB CHEMISTRY METHOD 10/27/2024 5:45 PM EDT [facility] Triglycerides 84 0 - 150 mg/dL LAB CHEMISTRY METHOD 10/27/2024 5:45 PM EDT [facility] HDL 52 >=40 mg/dL LAB CHEMISTRY METHOD 10/27/2024 5:45 PM EDT [facility] LDL Calculated 82 0 - 100 mg/dL LAB CHEMISTRY METHOD 10/27/2024 5:45 PM EDT [facility] VLDL Cholesterol Valeriy 16.8 mg/dL LAB CHEMISTRY METHOD 10/27/2024 5:45 PM EDT [facility] Non HDL Chol. (LDL+VLDL) 99 <145 mg/dL LAB CHEMISTRY METHOD 10/27/2024 5:45 PM EDT [facility] Chol/HDL Ratio 2.9 0.0 - 4.4 LAB CHEMISTRY METHOD 10/27/2024 5:45 PM EDT [facility] Blood Venous blood specimen / Unknown Venipuncture / Unknown 10/27/2024 12:25 PM EDT 10/27/2024 12:25 PM EDT Shane Miller NP LAB BLOOD ORDERABLES Final R esult Performing Organization Address City/[facility]/ZIP Co de Phone Number [facility] [address] [place] [address], [place] [phone] * Hemoglobin A1c (10/27/2024 12:25 PM EDT) Hemoglobin A1C 5.5 <6.5 % LAB CHEMISTRY METHOD 10/27/2024 10:21 PM EDT [facility] Mean Bld Glu Estim. 111 mg/dL LAB CHEMISTRY METHOD 10/27/2024 10:21 PM EDT [facility] Blood Venous blood specimen / Unknown Venipuncture / Unknown 10/27/2024 12:25 PM EDT 10/27/2024 12:25 PM EDT Nataliia Mckeon MD LAB BLOOD ORDERABLES Final Resul t [facility] [address] [place] [address], [place] [phone] * Comprehensive metabolic panel (10/27/2024 12:25 PM EDT) Sodium 134 133 - 145 mmol/L LAB CHEMISTRY METHOD 10/27/2024 5:45 PM [facility] Potassium 4.3 3.5 - 5.5 mmol/L LAB CHEMISTRY METHOD 10/27/2024 5:45 PM [facility] Chloride 103 96 - 110 mmol/L LAB CHEMISTRY METHOD 10/27/2024 5:45 PM [facility] CO2 27 21 - 32 mmol/L LAB CHEMISTRY METHOD 10/27/2024 5:45 PM [facility] Anion Gap 4 3 - 11 LAB CHEMISTRY METHOD 10/27/2024 5:45 PM [facility] Glucose 86 70 - 100 mg/dL LAB CHEMISTRY METHOD 10/27/2024 5:45 PM [facility] BUN 14 5 - 25 mg/dL LAB CHEMISTRY METHOD 10/27/2024 5:45 PM [facility] Creatinine 1.05 0.70 - 1.30 mg/dL LAB CHEMISTRY METHOD 10/27/2024 5:45 PM [facility] eGFR 73 >=60 mL/min/1. 73m2 LAB CHEMISTRY METHOD 10/27/2024 5:45 PM [facility] Comment:Calculation based on the Chronic Kidney Disease Epidemiology Collaboration (CKD-EPI) equation refit without adjustment for race. BUN/Creatinine Ratio 13.3 LAB CHEMISTRY METHOD 10/27/2024 5:45 PM [facility] Calcium 9.3 8.5 - 10.5 mg/dL LAB CHEMISTRY METHOD 10/27/2024 5:45 PM [facility] AST (SGOT) 22 10 - 42 unit/L LAB CHEMISTRY METHOD 10/27/2024 5:45 PM [facility] ALT (SGPT) 20 10 - 60 unit/L LAB CHEMISTRY METHOD 10/27/2024 5:45 PM [facility] Alkaline Phosphatase 100 42 - 121 unit/L LAB CHEMISTRY METHOD 10/27/2024 5:45 PM EDT [facility] Total Protein 7.8 6.0 - 8.0 g/dL LAB CHEMISTRY METHOD 10/27/2024 5:45 PM EDT [facility] Albumin 4.7 3.2 - 5.0 g/dL LAB CHEMISTRY METHOD 10/27/2024 5:45 PM EDT [facility] Total Bilirubin 0.7 0.0 - 1.4 mg/dL LAB CHEMISTRY METHOD 10/27/2024 5:45 PM EDT [facility] Blood Venous blood specimen / Unknown Venipuncture / Unknown 10/27/2024 12:25 PM EDT 10/27/2024 12:25 PM EDT Shane Miller NOT[employer]ER LAB BLOOD ORDERABLES Final R esult [facility] [address] [place] [address], [place] [phone] * US Retroperitoneal Complete (10/27/2024 11:52 AM EDT) Anatomical Region Laterality Modality Body Ultrasound Historical Provider IMG US PROCEDURES Final R esult * Depression Screening (11/20/2023) Pathologist [facility] Depression Screening abstracted Historical Provider HEALTH MAINTENANCE Final Result * Colonoscopy (03/10/2020) [facility] Colonoscopy abnormal, abstracted Anatomical Region Laterality Modality Other Historical Provider HEALTH MAINTENANCE Final Result * Hepatitis C Screening (10/22/2012) [facility] Hepatitis C Screening abstracted Historical Provider HEALTH MAINTENANCE Final Result from Last 3 Months or Most Recently Relevant to Health Maintenance Insurance [employer] Care Teams Customer Service Operator Relationship Specialty Start Date End Date Nataliia Mckeon MD [address] [place] [address] PCP - General Internal Medicine 10/24/20
== END 2024-11-17 10:57 | disposition home or self-care (01) ==
LOC: HO.MRI 10:56
PROVIDERS: PCP Internal Medicine; Visit Provider Nurse Practitioner Family
DX: N28.1 Cyst of kidney, acquired (principal)
CPT/HCPCS: 74183; A9585

== ENCOUNTER 2024-11-23 13:29 | Outpatient (AMB) | payer OTHER, SELFPAY ==
--- NOTE | 2024-11-23 13:31 | A.OFFVIS_ITS ---
Intake Visit Reasons: 3m/MRI(set) Intake Note: Patient is present for 3M/MRI Urology Medication:TAMSULOSIN Antibiotic Allergy:NONE Blood Thinner:ASPIRIN TODAY'S PVR:11ML'S [employer] Tester Required: No Allergies No Known Allergies Allergy (Verified 11/23/24 15:18) Medication List - Last Reconciled 11/23/24 by JORGE RodriguezP- aspirin 81 mg PO DAILY carbidopa-levodopa 25-100 mg (Sinemet) 1 tab PO QID 90 days clonazepam 0.5 mg PO BEDTIME coenzyme Q10 mg PO fluoride (sodium) 1.1% (PreviDent 5000 Booster Plus) dental fluoxetine 10 mg PO DAILY glucosamine sulfate 1,000 mg PO DAILY hyoscyamine sulfate 0.125 mg PO BID-QID PRN loratadine 10 mg PO DAILY melatonin 10 mg PO BEDTIME 30 days midodrine 5 mg PO BID multivitamin 1 tab PO DAILY omeprazole magnesium 2.5 mg PO TID polyethylene glycol 3350 (Miralax) 17 grams PO DAILY tamsulosin 0.8 mg (2 x 0.4 mg) PO BEDTIME 90 days eulovktx-fraq-ekcgk-oreg-capry 100 mg-150 mg- 50 mg-150 mg caps PO HPI Comments Details: Mario is a very pleasant 79-year-old male patient of Dr. Mckeon. He has a past medical history of urinary frequency, cataracts, depression, anxiety, and Parkinson's disease. He presents to the office today for follow-up of his lower urinary tract symptoms and renal cysts. Recent renal MRI results reviewed with the patient today 11/19 septated cyst at the upper poles of both kidneys measuring up to 2.3 cm on the right side and 2.2 cm on the left side. In discussion with the patient today he reports having followed up with his PCP for ongoing issues he has been experiencing with his blood pressure. He reports recently starting on 2.5 mg of midodrine t.i.d. He also discusses his follow-up appointment tomorrow with cardiology for placement of Holter monitor. Previous imaging has also included a retroperitoneal ultrasound noting bilateral kidneys with no hydronephrosis or renal calculi. Right kidney with 2.4 cm upper pole cyst. Left kidne with 1.8 upper pole mildly complex renal cyst. The prostate measures approximately 50 mL. In discussion with the patient today he reports noting somewhat improvement in urinary urgency and urinary frequency he had been experiencing with 0.8 mg of Flomax. He is enquiring and increase in dose as he feels symptoms have improved however can continue to improve. Recent retroperitoneal ultrasound 08/20 notes bilateral kidneys with no hydronephrosis or renal calculi. Right kidney with 2.4 cm upper pole cyst. Left kidney with 1.8 upper pole mildly complex renal cyst and follow-up is recommended per radiology report. The prostate measures approximately 50 mL. In office urinalysis results reviewed with the patient today. PVR 11 mL. PSA 08/20 2.1. We discussed at length correlation of Parkinson's disease and lower urinary tract symptoms. We also discussed potential near future in office urodynamics and or cystoscopy if symptoms persist and/or worsen. He otherwise offers no other issues or concerns at this time. [facility] [place] Medical History Orthostatic hypotension Urinary frequency Cataract Depression Anxiety REM behavioral disorder Parkinsons disease Surgical History Vasectomy status History of tonsillectomy Family History Mother Breast cancer Brother Thyroid cancer Leukemia Sister Colon cancer Social History Alcohol intake: current Alcohol intake frequency: holidays/special occasions only Patient Tobacco Use Status: Never used Tobacco Review of Systems Const All systems reviewed & are unremarkable except as noted in HPI and below Physical Exam Const General: cooperative, healthy appearing, comfortable, no acute distress, well developed, alert and awake Orientation/consciousness: patient oriented x3 Limitations: no limitations HEENT Head: Yes normal to inspection, Yes normocephalic and Yes atraumatic Ears: hearing grossly normal bilaterally Eyes General: appearance normal, both eyes and all related structures Neck Neck: Yes normal visual inspection and Yes trachea midline Chest Chest palpation & inspection: normal inspection of the chest Resp Effort & Inspection: normal respiratory effort and able to speak in complete sentences Cardio Rate: regular rate GI Inspection: Yes normal to inspection General: Yes no CVA tenderness Back/Spine/Pelvis Back: no CVA tenderness Skin General skin exam: no rashes or lesions noted Neuro General: patient oriented x3 Extrem General: Yes normal to inspection Psych Appearance: grossly normal and well kempt Mental Status: mental status grossly normal Speech and movement: Normal speech and movement present and Clear speech present Affect: normal affect Attitude: cooperative Thought process: Normal thought process present Thought content: Normal thought content present Insight: Fair insight present (Psych) Judgement: Fair judgement present (Psych) Office Procedures Post Void Residual Post Residual Void Post Void Residual (PVR): 11 [id number] Void Residual by ultrasound Results AMB Urinalysis, Automated UA Leukoctes 0 Yon/uL Last Edit by Cruzito Johnson CCM on 11/23/24 14:56 UA Nitrite Negative Last Edit by Cruzito Johnson [facility] on 11/23/24 14:56 UA Urobilinogen 0.2 mg/dL Last Edit by Cruzito Johnson [facility] on 11/23/24 14:5 6 UA Protein 0 mg/dL Last Edit by Cruzito Johnson [facility] on 11/23/24 14:56 UA pH 7.0 Last Edit by Cruzito Johnson [facility] on 11/23/24 14:56 UA Blood 0 Jaspreet/uL Last Edit by Cruzito Johnson [facility] on 11/23/24 14:56 UA Specific Semora 1.010 Last Edit by Cruzito Johnson [facility] on 11/23/24 14: 56 UA Ketone Negative Last Edit by Cruzito Johnson [facility] on 11/23/24 14:56 UA Bilirubin 0 mg/dL Last Edit by Cruzito Johnson [facility] on 11/23/24 14:56 UA Glucose 0 mg/dL Last Edit by Cruzito Johnson [facility] on 11/23/24 14:56 Results Reviewed Results Reviewed: Laboratory Last Values Urine pH (Auto) 7.0 11/23/24 14:54 Specific Semora (Auto) 1.010 11/23/24 14:54 Urine Protein (Auto) 0 mg/dL 11/23/24 14:54 Glucose (UA)(Auto) 0 mg/dL 11/23/24 14:54 Urine Ketones (Auto) Negative 11/23/24 14:54 Urine Blood (Auto) 0 Jaspreet/uL 11/23/24 14:54 Urine Nitrite (Auto) Negative 11/23/24 14:54 Urine Bilirubin (Auto) 0 mg/dL 11/23/24 14:54 Urine Urobilinogen (Auto) 0.2 mg/dL 11/23/24 14:54 Leukocyte Esterase (Auto) 0 Yon/uL 11/23/24 14:54 Date of Service: 11/17/24 Procedure(s): MR abdomen wo/w con FINDINGS: Liver: There is no loss of signal intensity in the liver on opposed phase imaging to suggest steatosis. There is no enhancing liver mass. The hepatic and portal veins are patent. There is no intrahepatic biliary dilatation. Gallbladder/biliary tree: No gallstones are identified. The common bile duct is normal in caliber. No intraluminal filling defects are identified to suggest choledocholithiasis. Spleen: The spleen is unremarkable. Pancreas: There is atrophy of the pancreatic head and body. There is no enhancing pancreatic mass. The pancreatic duct is normal in caliber. Adrenals: There is a 1.2 cm left adrenal nodule which demonstrates loss of signal intensity on opposed phase imaging, compatible with an adenoma. Kidneys: There is a 2.3 x 2.1 x 2.1 cm septated cyst at the upper pole of the right kidney and a 2.2 x 1.0 x 1.1 cm septated cyst at the upper pole of the left kidney. Smaller cysts are noted bilaterally. No enhancing lesion is identified.. There is no hydronephrosis. Lymph nodes: There is no retroperitoneal lymphadenopathy in the upper abdomen. Fluid: There is no ascites in the upper abdomen. Visualized bowel: The visualized small and large bowel loops are unremarkable in appearance. Visualized bones: The visualized bones demonstrate normal marrow signal intensity. IMPRESSION: 1. Septated cysts at the upper poles of both kidneys measuring up to 2.3 cm on the right and 2.2 cm on the left. 2. 1.2 cm left adrenal adenoma. 3. Atrophy of the pancreatic head and body. Assessment & Plan Assessment & Plan (1) Urinary frequency: Code(s): R35.0 - Frequency of micturition Category: Medical (2) Urinary urgency: Code(s): R39.15 - Urgency of urination Category: Medical (3) Complex renal cyst: Code(s): N28.1 - Cyst of kidney, acquired Category: Medical Plan In office urinalysis results with the patient today; as noted above. PVR 11 mL. Recent kidney MRI results reviewed with the patient today; as noted above. Will continue with surveillance monitoring of lower urinary tract symptoms and renal cysts. He reports be happy with current voiding parameters. Continue Flomax as discussed and prescribed. Will obtain renal ultrasound in 6 months. Will obtain PSA in 6 months. Follow-up in 6 months with labs and imaging to be completed prior; or sooner with any issues, concerns, and or questions. Orders: Orders Prostate Specific Antigen 6 Months R35.0 - Frequency of micturition, R39.15 - Urgency of urination AMB Urinalysis Automated Today Z13.9 - Encounter for screening, unspecified US renal BI 6 Months N28.1 - Cyst of kidney, acquired Patient Instructions: The patient had an opportunity to ask questions regarding the treatment plan. All questions were answered. Physical exam, labs, and imaging were discussed and reviewed in detail. As well as risks, benefits, and discussion of treatment choices. No major barriers to understanding were identified. The patient expressed understanding and agreement with the above treatment plan. The patient was made aware they should contact our office by phone for worsening of their current condition, the appearance of new symptoms, or with any questions or concerns. Compliance is encouraged with any medications and follow up testing that is ordered. It is a privilege to be allowed the opportunity to participate in? your urological care.? Again, if you have any questions or concerns If you have any questions or concerns please do not hesitate to contact me. The office is [phone]. This note is constructed using voice recognition software. While every effort has been made to ensure accuracy enterprise application developer errors may have been included. Yours sincerely, MEGAN Rodriguez Coding Level of Care Code Est Pt Level 3 (84300) Complex EM visit Add On G2211 Diagnoses Urinary frequency R35.0 Urinary urgency R39.15 Complex renal cyst N28.1 CPT Codes Post Residual Void - PVR CPT Code: 22127-Dvch Void Residual by ultrasound ([id number])
== END 2024-11-23 14:31 | disposition home or self-care (01) ==
LOC: HO.HUSH 13:29
PROVIDERS: PCP Internal Medicine; Visit Provider Nurse Practitioner Family
DX: R35.0 Frequency of micturition (principal); R39.15 Urgency of urination; N28.1 Cyst of kidney, acquired; Z13.9 Encounter for screening, unspecified
CPT/HCPCS: 99213

== ENCOUNTER → 2024-11-23 13:29 | Outpatient (BNVA) | payer OTHER, SELFPAY | PROVIDERS: PCP Internal Medicine; Visit Provider Nurse Practitioner Family | DX: R35.0 Frequency of micturition (principal); R39.15 Urgency of urination; N28.1 Cyst of kidney, acquired | CPT/HCPCS: 51798; 81003; 99212 ==

== ENCOUNTER → 2024-11-24 14:19 | Outpatient (REF) | payer OTHER, SELFPAY ==
--- NOTE | 2024-11-24 14:24 | HM_ITS ---
* Total monitoring time 6 days. * Underlying rhythm is sinus with an average rate of 52/Min. About 77% of the time, rate < 60/Min. * Rare supraventricular ectopy. * Rare ventricular ectopy. * No significant pauses or high-grade AV blocks. * Dizziness in patient diary correlates with sinus rhythm. MTDD
== END ==
LOC: HO.CARD 14:19
PROVIDERS: PCP Internal Medicine; Visit Provider Psychiatry & Neurology Neurology
DX: I95.1 Orthostatic hypotension (principal); R00.1 Bradycardia, unspecified
CPT/HCPCS: 93225

== ENCOUNTER → 2024-11-24 14:24 | Outpatient (BNV) | payer OTHER, SELFPAY | PROVIDERS: PCP Internal Medicine; Visit Provider Internal Medicine | DX: I47.10 Supraventricular tachycardia, unspecified (principal); I49.3 Ventricular premature depolarization | CPT/HCPCS: 93227 ==

== ENCOUNTER 2024-12-29 12:43 | Outpatient (AMB) | payer OTHER, SELFPAY ==
[2024-12-29 12:52] VITALS: BP 116/60; PULSE 52; BMI 24.5
--- NOTE | 2024-12-29 12:52 | A.OFFVIS_ITS ---
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/ charmaine/htn Allergies No Known Allergies Allergy (Verified 11/23/24 15:18) Medication List - Last Reconciled 12/29/24 by Angus Loera MD aspirin 81 mg PO DAILY carbidopa-levodopa 25-100 mg (Sinemet) 1 tab PO QID 90 days clonazepam 0.5 mg PO BEDTIME coenzyme Q10 mg PO fluoride (sodium) 1.1% (PreviDent 5000 Booster Plus) dental fluoxetine 10 mg PO DAILY glucosamine sulfate 1,000 mg PO DAILY hyoscyamine sulfate 0.125 mg PO BID-QID PRN loratadine 10 mg PO DAILY melatonin 10 mg PO BEDTIME 30 days midodrine 2.5 mg PO BID multivitamin 1 tab PO DAILY omeprazole magnesium 2.5 mg PO TID polyethylene glycol 3350 (Miralax) 17 grams PO DAILY tamsulosin 0.8 mg (2 x 0.4 mg) PO BEDTIME 90 days ivrkbajx-pool-tubku-oreg-capry 100 mg-150 mg- 50 mg-150 mg caps PO HPI Comments Details: Mario has been referred for cardiac consultation regarding bradycardia and low blood pressure. He also has Parkinson's disease. According to his , heart rates have been in the 40s and 50s and hence there is a concern. Seems there is also history of orthostatic hypotension and he is being maintained on midodrine. When he is walking upstairs extra, he can get filling of dizziness with visual disturbances. However, it is not consistent. Additionally, he does not really get anything clear-cut when he gets up from a seated position. Hence seems overall intermittent. He is also describing chest pains for the last few months. Then happens with activity and sometimes at rest. However, no known coronary disease. [facility] Medical History Orthostatic hypotension Urinary frequency Cataract Depression Anxiety REM behavioral disorder Parkinsons disease Surgical History Vasectomy status History of tonsillectomy Family History Mother Breast cancer Brother Thyroid cancer Leukemia Sister Colon cancer Social History Alcohol intake: current Alcohol intake frequency: holidays/special occasions only Patient Tobacco Use Status: Never used Tobacco Review of Systems Const Denies weakness ENT Reports dizziness Card Reports chest pain, Reports chest pain with activity, Denies syncope, Denies rapid heart rate, Denies pedal edema, Denies edema, Denies leg edema, Denies lightheadedness, Reports palpitations, Denies dyspnea, Denies dyspnea on exertion and Denies orthopnea Resp Denies cough, Denies dyspnea and Denies dyspnea on exertion GI Denies hematochezia and Denies change in stool character Musc Denies abnormal gait, Denies muscle cramps, Denies muscle weakness, Denies numbness, Denies radiating pain into limb and Denies tingling Neuro Denies abnormal gait, Reports dizziness, Denies syncope, Denies numbness, Denies tingling and Denies weakness Endo Reports palpitations Physical Exam Vital Signs: Last Vital Signs Pulse 52 12/29/24 12:52 BP 116/60 12/29/24 12:52 BMI result Body Mass Index 24.5 Const General: comfortable and no acute distress Orientation/consciousness: patient oriented x3 HEENT Other: Unremarkable Head: Yes normal to inspection Neck Neck: Yes normal visual inspection Chest Chest palpation & inspection: normal inspection of the chest Resp Auscultation: clear to auscultation bilaterally Cardio Palpation: normal PMI Heart sounds: S1 normal heart sound present, S2 normal heart sound present, no gallops, no murmurs and no rubs GI Palpation (GI): Soft to palpation Back/Spine/Pelvis Other: unremarkable Skin General skin exam: no rashes or lesions noted Neuro General: patient oriented x3 Extrem General: Yes normal to inspection Psych Mental Status: mental status grossly normal Office Procedures EKG Details: EKG with underlying sinus bradycardia at 52/Min; nonspecific ST-T changes; [place]. [id number], Complete Assessment & Plan Assessment & Plan (1) Sinus bradycardia: Code(s): R00.1 - Bradycardia, unspecified Category: Medical Plan: In the Holter monitor, underlying rhythm is sinus with an average rate of 52/Min. Frequent sinus bradycardia but no significant pauses or high-grade AV blocks. No specific interventions needed. (2) Orthostatic hypotension: Code(s): I95.1 - Orthostatic hypotension Category: Medical Plan: He is on midodrine and that may be continued. If necessary, go up on the dose. (3) Precordial chest pain: Code(s): R07.2 - Precordial pain Category: Medical Plan: Not clear if it is truly angina or something else. We will pursue further workup with an echocardiogram and stress test. He states that he will be able to walk on the treadmill. If having any difficulty, switch to pharmacological stress test. If he indeed can do the New treadmill, can also assess for chronotropic competence and blood pressure response. Plan Discussion Notes I discussed with the patient that his bradycardia is not a major concern at this time, as slow heart rates are common and not necessarily problematic. We will not pursue further monitoring unless symptoms change. Regarding his chest pain, I explained the need for a stress test and echocardiogram to evaluate cardiac function and rule out ischemic heart disease. The patient was informed about the procedure and its purpose. Patient was informed and verbally consented to the use of an ambient scribe for clinic note documentation during this visit. Orders: Orders CA stress test Today R07.2 - Precordial pain CA echo transthoracic complete Today I95.1 - Orthostatic hypotension NM cardiolite stress test Today R07.2 - Precordial pain Patient Instructions: - Continue using support when climbing stairs to prevent falls. - Monitor symptoms of dizziness and report any changes. - Attend scheduled stress test and echocardiogram appointments. Coding Level of Care Code New Pt Level 4 (49365) Complex EM visit Add On G2211 Diagnoses Sinus bradycardia R00.1 Orthostatic hypotension I95.1 Precordial chest pain R07.2 CPT Codes EKG - CPT: 96510-[id number], Complete ([id number])
--- OUTSIDE RECORDS SUMMARY | 2024-12-29 15:05 | XMS_ITS | Clinical Summary ---
Author Organization [facility] Address [address] [place] [address] Phone Care Team Providers Care Fishing Instructor Name Role Phone Nataliia Mckeon MD Primary Care Provider [phone] Allergies Active Allergy Reactions Criticality Noted Date Comments Amoxicillin Trihydrate Rash High 09/03/2005 Cephalexin Monohydrate Rash High 09/03/2005 Medications aspirin 81 mg chewable tablet Chew 1 tablet (81 mg total) 1 (one) time each day. Patient Buy OTC Active carbidopa-levo dopa (SINEMET) 25-100 mg per tablet Take by mouth 3 (three) times a day. Prescribed By Neurologist Dr. Salmeron Active coenzyme Q-10 10 mg capsule Take by mouth 1 (one) time each day. Active glucosam/sherri- msm1/C/franki/leatha sw (GLUCOSAMINE-C HONDROITIN 3X ORAL) Take by mouth 1 (one) time each day. Active multivitamin with minerals (Multiple Vitamin-Minera ls) tablet Take 1 tablet by mouth 1 (one) time each day. Patient Buy OTC Active melatonin 1 mg tablet Take 1 mg by mouth at bedtime. Active turmeric root extract 500 mg capsule Take by mouth 1 (one) time each day. Patient Buy OTC Active fluoride, sodium, (PreviDent 5000 Booster Plus) 1.1 % paste Historic 3 Active clonazePAM (KlonoPIN) 0.5 mg tablet Take [...] for flatulence. 30 tablet 11 5 Active midodrine (PROAMATINE) 2.5 mg tablet Take 1 tablet (2.5 mg total) by mouth 2 (two) times a day. Prescibed by Geneva Salmeron, Neurologist 5 Active hyoscyamine (ANASPAZ,LEVSI N) 0.125 mg tablet Take 8 tablets (1 mg total) by mouth 1 (one) time each day at the same time. 4 Active omeprazole OTC (PriLOSEC OTC) 20 mg EC tablet Take 1 tablet (20 mg total) by mouth 1 (one) time each day. Do not crush, chew, or split. 90 tablet 1 5 Active loratadine (CLARITIN) 10 mg tablet Take 1 tablet (10 mg total) by mouth 1 (one) time each day. 30 each 4 5 06/12/19 26 Active FLUoxetine (PROzac) 20 mg capsule Take 1 capsule (20 mg total) by mouth 1 (one) time each day. 30 each 4 5 Active FLUoxetine (PROzac) 20 mg capsule Take 1 capsule (20 mg total) by mouth 1 (one) time each day. 30 each 5 5 12/14/19 25 Discontin ued(Reord er) loratadine (CLARITIN) 10 mg tablet Take 1 tablet (10 mg total) by mouth 1 (one) time each day. 30 each 5 5 12/14/19 25 Discontin ued(Reord er) Active Problems Problem Noted Date Diagnosed Date Adenoma of left adrenal gland 11/30/2024 Overview (11/30/2024): 1.2 cm, during CT scan October 2024 Renal cyst 08/13/2024 Overview (08/13/2024): Per ultrasound in the ER July 2024, from the [facility] ER. Bilateral. Left upper pole cyst appears [...] Encounters Date Type Department Care Team Description 12/29/2024 Telephone Adult Medicine [address] [phone] Nataliia Mckeon MD 11/15/2024 Telephone [facility] [address] [facility] [address] [place] [address] Nataliia Mckeon MD 10/27/2024 11:00 AM EDT Office Visit Adult Medicine [address] [phone] Shane Miller NP Hypotension, unspecified hypotension type [...] History Surgery Date Site/Laterality Comments VASECTOMY PROCEDURE: UT VASECTOMY UNI/BI SPX W/POSTOP SEMEN EXAMS NASAL SEPTUM SURGERY PROCEDURE: UT REPAIR NASAL SEPTAL PERFORATIONS; COMMENT: 2 operations TONSILLECTOMY PROCEDURE: HISTORICAL TONSILLECTOMY; COMMENT: 1960 UPPER GASTROINTESTINAL ENDOSCOPY 05/24/2004 PROCEDURE: UT UPPER GI ENDOSCOPY PERFORMED; COMMENT: Negative COLONOSCOPY [...] ed Within the last 3 months, ho [place] many times did you visit the emergency [...] care for your loved ones. For example, child development professor or elderly care for an older adult? [...] Info) Description 03/10/2025 10:00 AM EST Appointment [facility]oscopy [address] [place] [phone] Anali Patel MD [address] [place] [address] 03/23/2025 10:00 AM EST Office Visit Gastroenterology - [place] 175 [facility] [address] [facility] [address] [place] [phone] Kat Orlando NP [address] [place] [address] 03/30/2025 1:15 PM EST Office Visit Adult Medicine [facility] [address] [place] [address] Nataliia Mckeon MD [address] [place] [address] Health Maintenance Due Date Last Done Comments Medicare Annual Wellness Visit 11/19/2024 11/20/2023 COVID-19 Vaccine ( season) 2024 02/23/2024, 03/21/2023, 02/04/2022, Additional history exists Influenza Vaccine (#1) 2024 , 01/31/2023, 01/30/2022, [...] Name Priority Date/Time Associated Diagnosis Comments EXTERNAL MRI REPORT 11/17/2024 EXTERNAL MRI REPORT 11/17/2024 HEMOGLOBIN A1C Routine 10/27/2024 12:25 PM EDT [...] RETROPERITONEAL COMPLETE Routine 10/27/2024 11:52 AM EDT DEPRESSION SCREENING Routine 11/20/2023 COLONOSCOPY Routine 03/10/2020 HEPATITIS C SCREENING Routine 10/22/2012 from Last 3 Months or Most Recently Relevant to Health Maintenance Results * External MRI Report (11/17/2024) Only the most recent of2 resultswithin the time period is included. Anatomical Region Laterality Modality Magnetic Resonan ce us Provider [facility] MRI PROCEDURES Final Result * Thyroid stimulating hormone with reflex to free t4 and free t3 (10/27/2024 12:25 PM EDT) TSH 3.64 0.40 - 4.00 mcIU/mL LAB CHEMISTRY METHOD 10/27/2024 6:08 PM EDT [facility] ([facility]) [facility] Blood Venous blood specimen / Unknown Venipuncture / Unknown 10/27/2024 12:25 PM EDT 10/27/2024 12:25 PM EDT us Nataliia Mckeon MD LAB BLOOD ORDERABLES Final Resul t [facility] [address] [place] [address], [place] [phone] * Lipid panel with reflex to direct LDL (10/27/2024 12:25 PM EDT) Cholesterol 151 0 - 200 mg/dL LAB CHEMISTRY METHOD 10/27/2024 5:45 PM EDT [facility] Triglycerides 84 0 - 150 mg/dL LAB CHEMISTRY METHOD 10/27/2024 5:45 PM EDT [facility] HDL 52 >=40 mg/dL LAB CHEMISTRY METHOD 10/27/2024 5:45 PM EDT [facility] LDL Calculated 82 0 - 100 mg/dL LAB CHEMISTRY METHOD 10/27/2024 5:45 PM EDT [facility] VLDL Cholesterol Valeriy 16.8 mg/dL LAB CHEMISTRY METHOD 10/27/2024 5:45 PM EDT [facility] Non HDL Chol. (LDL+VLDL) 99 <145 mg/dL LAB CHEMISTRY METHOD 10/27/2024 5:45 PM EDT [facility] Chol/HDL Ratio 2.9 0.0 - 4.4 LAB CHEMISTRY METHOD 10/27/2024 5:45 PM EDT [facility] Blood Venous blood specimen / Unknown Venipuncture / Unknown 10/27/2024 12:25 PM EDT 10/27/2024 12:25 PM EDT Shane Miller NP LAB BLOOD ORDERABLES Final R esult [facility] [address] [place] [address], [place] [phone] * Hemoglobin A1c (10/27/2024 12:25 PM EDT) [facility] Hemoglobin A1C 5.5 <6.5 % LAB CHEMISTRY METHOD 10/27/2024 10:21 PM EDT [facility] Mean Bld Glu Estim. 111 mg/dL LAB CHE[facility]STRY [facility] Blood Venous blood specimen / Unknown Venipuncture / Unknown 10/27/2024 12:25 PM EDT 10/27/2024 12:25 PM EDT us Nataliia Mckeon MD LAB BLOOD ORDERABLES Final Resul t [facility] [address] [place] [address], [place] [phone] * Comprehensive metabolic panel (10/27/2024 12:25 PM EDT) [facility] Sodium 134 133 - 145 mmol/L LAB CHEMISTRY METHOD 10/27/2024 5:45 PM [facility] Potassium 4.3 3.5 - 5.5 mmol/L LAB CHEMISTRY METHOD 10/27/2024 5:45 PM [facility] Chloride 103 96 - 110 mmol/L LAB CHEMISTRY METHOD 10/27/2024 5:45 PM [facility] CO2 27 21 - 32 mmol/L LAB CHEMISTRY METHOD 10/27/2024 5:45 PM [facility] Anion Gap 4 3 - 11 LAB CHEMISTRY METHOD 10/27/2024 5:45 PM [facility] Glucose 86 70 - 100 mg/dL LAB CHEMISTRY METHOD 10/27/2024 5:45 PM [facility] BUN 14 5 - 25 mg/dL LAB CHEMISTRY METHOD 10/27/2024 5:45 PM [facility] Creatinine 1.05 0.70 - 1.30 mg/dL LAB CHEMISTRY METHOD 10/27/2024 5:45 PM EDT [facility] eGFR 73 >=60 mL/min/1. 73m2 LAB CHEMISTRY METHOD 10/27/2024 5:45 PM T [facility] Comment:Calculation based on the Chronic Kidney Disease Epidemiology Collaboration (CKD-EPI) equation refit without adjustment for race. BUN/Creatinine Ratio 13.3 LAB CHEMISTRY METHOD 10/27/2024 5:45 PM EDT [facility] Calcium 9.3 8.5 - 10.5 mg/dL LAB CHEMISTRY METHOD 10/27/2024 5:45 PM [facility] AST (SGOT) 22 10 - 42 unit/L LAB CHEMISTRY METHOD 10/27/2024 5:45 PM [facility] ALT (SGPT) 20 10 - 60 unit/L LAB CHEMISTRY METHOD 10/27/2024 5:45 PM [facility] Alkaline Phosphatase 100 42 - 121 unit/L LAB CHEMISTRY METHOD 10/27/2024 5:45 PM EDT [facility] Total Protein 7.8 6.0 - 8.0 g/dL LAB CHEMISTRY METHOD 10/27/2024 5:45 PM [facility] Albumin 4.7 3.2 - 5.0 g/dL LAB CHEMISTRY METHOD 10/27/2024 5:45 PM [facility] Total Bilirubin 0.7 0.0 - 1.4 mg/dL LAB CHEMISTRY METHOD 10/27/2024 5:45 PM T [facility] Blood Venous blood specimen / Unknown Venipuncture / Unknown 10/27/2024 12:25 PM EDT 10/27/2024 12:25 PM EDT us Shane Miller NP LAB BLOOD ORDERABLES Final R esult [facility] [address] [place] [address], [place] [phone] * US Retroperitoneal Complete (10/27/2024 11:52 AM EDT) Anatomical Region Laterality Modality Body Ultrasound Historical Provider IMG US PROCEDURES Final R esult * Depression Screening (11/20/2023) Pathologist [facility] Depression Screening abstracted Historical Provider HEALTH MAINTENANCE Final Result * Colonoscopy (03/10/2020) Pathologist [facility] Colonoscopy abnormal, abstracted Anatomical Region Laterality Modality Other Historical Provider HEALTH MAINTENANCE Final Result * Hepatitis C Screening (10/22/2012) Pathologist [facility] Hepatitis C Screening abstracted Historical Provider HEALTH MAINTENANCE Final Result from Last 3 Months or Most Recently Relevant to Health Maintenance Insurance [employer] Care Teams Fishing Instructor Relationship Specialty Start Date End Date Nataliia Mckeon MD [address] [place] [address] PCP - General Internal Medicine 10/24/20
== END 2024-12-29 13:22 | disposition home or self-care (01) ==
LOC: HO.HCS 12:43
PROVIDERS: PCP Internal Medicine; Visit Provider Internal Medicine
DX: R00.1 Bradycardia, unspecified (principal); I95.1 Orthostatic hypotension; R07.2 Precordial pain
CPT/HCPCS: 93010; 99214

== ENCOUNTER → 2024-12-29 12:43 | Outpatient (BNVA) | payer OTHER, SELFPAY | PROVIDERS: PCP Internal Medicine; Visit Provider Internal Medicine | DX: I95.1 Orthostatic hypotension (principal); R00.1 Bradycardia, unspecified; R07.2 Precordial pain | CPT/HCPCS: 93005; 99212 ==

== ENCOUNTER → 2025-02-02 14:35 | Outpatient (REF) | payer OTHER, SELFPAY ==
--- NOTE | 2025-02-02 14:38 | CA_ITS ---
Transthoracic Echocardiogram Patient (Last, First, Middle): Mario Puga, Gender: Male Date of : 1945 Age: 79 Procedure Date: 02/02/2025 Procedure Type: Transthoracic Echocardiogram Location: OP Height: 172.72 cm Weight: 72.58 kg BSA: 1.86 m2 Heart Rate: bpm BP: 116 / 60 mmHg Furnace Fitter: JUAN DAVID Referring MD: Angus Loera MD Symptoms: I95.1 - Orthostatic hypotension Study Quality: Adequate Conclusions: - 1. Normal LV ejection fraction of 60 65% with grade 1 diastolic dysfunction 2. Normal cardiac valvular Dopplers next 3. No pericardial effusion Findings Left Ventricle Normal left ventricular size, thickness, and systolic function. The visually estimated ejection fraction is between 60-65%. Spectral Doppler is indicative of an impaired relaxation filling pattern. E/E prime ratio is <8, consistent with normal filling pressures. Evidence suggests grade I (mild) diastolic dysfunction. Right Ventricle Normal right ventricular cavity size and systolic function. Atria The left atrium is likely dilated. Interatrial shunt cannot be excluded. The right atrium is normal in size. Aortic Valve Normal aortic valve structure and function. There is no aortic valve stenosis. There is no aortic valve regurgitation. Mitral Valve Normal mitral valve structure and function. There is trace mitral valve regurgitation. There is no mitral valve stenosis. Pulmonic Valve The pulmonic valve is likely normal. Tricuspid Valve Likely normal tricuspid valve structure and function. Tricuspid regurgitation envelope is inadequate for calculation of right ventricular systolic pressure. Normal right atrial pressure. Great Vessels All visible segments of the aorta are normal in size. The pulmonary artery was not well visualized. There is no dilatation of the ascending aorta measuring 3.30 cm. Pericardium/Pleural There is no evidence of pericardial effusion. Prior Study Comparison No prior study available for comparison. Measurements 2D Linear Measurements IVSd: 0.82 0.6-0.9/0.6-1.0 cm LVIDd: 4.26 3.9-5.3/4.2-5.9 cm LVIDd Index: 2.29 2.4-3.2/2.2-3.1 cm/m2 LVIDs: 2.59 2.0-3.6 cm LVPWd: 0.96 0.7-1.1 cm LA Diam: 3.30 2.7-3.8/3.0-4.0 cm LAIDs Index: 1.77 1.5-2.3 cm/m2 LV Mass: 149.56 67-162/88-224 g LV Mass Index: 80.41 43-95/49-115 g/m2 LVOT Diam: 2.10 3.0+(-)1.3 cm 2D Systolic Function EF 4C: 65.60 >55% EF 2C: 65.60 >55% EF BiP: 65.90 >55% Mitral Valve MV Pk E: 0.81 MV PK A: 0.72 MV Decel Time: 182.00 E/A: 1.10 E'Lateral: 8.81 E'Medial: 6.64 E/E' Med: 12.10 E/E' Lat: 9.10 PHT: 53.00 MVA PHT: 4.15 Decel Fallon: 4.41 Aortic Valve AoV Pk Rj: 1.31 AoV Mn Rj: 0.91 AoV VTI: 0.33 AoV Pk Grad: 7.00 Aov Mn Grad: 4.00 JERONIMO Cont.VTI: 2.78 LVOT LVOT Pk Rj: 1.01 LVOT Mn Rj: 0.61 LVOT VTI: 0.26 LVOT Pk Grad: 4.00 LVOT Mn Grad: 2.00 LVOT Diam: 2.10 LVOT Area: 3.46 Diastolic Function MV Pk E: 0.81 MV Pk A: 0.72 E/A: 1.10 E'Medial: 6.64 E/E' Med: 12.10 E' Laterial: 8.81 E/E' Lat: 9.10 Right Ventricle TAPSE (mm): 30.10 TVS' Rj: 13.40 Tricuspid Valve RA Press: 3.00 Great Vessels Aorta Sinus of Valsalva: 3.17 2.0-3.[address] Ridge: 2.64 1.7-3.4 cm Ao Asc: 3.30 2.1-3.4 cm Pulmonary Veins Pulm Vein S/D 1.40 Updated in Other Vendor System with Status of Final Castillo Rawls MD electronically signed on 02/03/2025 11:19:07 AM with status of Final
== END ==
LOC: HO.CARD 14:35
PROVIDERS: PCP Internal Medicine; Visit Provider Internal Medicine
DX: I95.1 Orthostatic hypotension (principal)
CPT/HCPCS: 93306

== ENCOUNTER → 2025-02-02 14:38 | Outpatient (BNV) | payer OTHER, SELFPAY | PROVIDERS: PCP Internal Medicine; Visit Provider Internal Medicine Cardiovascular Disease | DX: I51.89 Other ill-defined heart diseases (principal); I95.1 Orthostatic hypotension | CPT/HCPCS: 93306 ==

== ENCOUNTER → 2025-02-21 10:01 | Outpatient (REF) | payer OTHER, SELFPAY ==
--- NOTE | ~2025-02-21 | NM_ITS ---
Lexiscan Myocardial perfusion study Indication: Chest pain Technique: The patient was brought in for a Lexiscan perfusion study on 02/21/2025 and was injected 0.4 mg of Lexiscan intravenously. Within a minute of this injection 25 mCi of sestamibi was given intravenously. Images were obtained using the SPECT gamma camera interlaced with the gating device. Images were obtained in supine position. Resting perfusion study was performed on 02/23/2025. Patient was administered 25 mCi of sestamibi intravenously at rest. Images were then obtained in supine position. Total DLP 105 mGy-cm. Images were processed with the software and compared side to side in short axis, horizontal long axis and vertical long axis views. Findings: Raw aquisition reviewed. Arms by the patient's side. The stress perfusion study showed no significant perfusion abnormality. Both uncorrected as well as CT attenuation corrected images were reviewed. The gated study shows normal LV systolic function with calculated LVEF of 71%. LV cavity is normal in size. The gated study shows normal wall thickening and contraction of segments. Resting study shows no significant perfusion abnormality. Gating at rest reveals normal wall motion with ejection fraction at 68%. The findings are consistent with no clear reversible or fixed perfusion abnormality. NM/NM cardiolite stress test Impression: 1. Myocardial perfusion imaging study shows normal myocardial perfusion. 2. Gated LVEF is 71% during stress and 68% during rest. 3. Transient ischemic dilatation not present. EKG component of the test reported separately. Electronically signed by: Angus Loera MD 02/24/2025 04:01 PM EDT
--- NOTE | 2025-02-21 10:06 | CA_ITS ---
Acquisition Time: 2025-02-21 10:36:09 Total Exercise Time: 00:04:33 Test Indications: cp, htn Medications: see h&p Protocol: ADA Max HR: 93 BPM 65% of Pred: 142 BPM Max BP: 130/70 mmHG Max Work Load: 6.4 METS Exercise stress test with exercise 4 mins 33 secs of Ada Protocol, achieving 63% MPHR, with reports of dizziness and SOB, requested to stop. No CP. No EKG changes at achieved workload. BP dropped to 62/30 at end of exercise that improved to baseline in recovery. Test switched to Lexiscan. Pharmacological stress test with Lexiscan while pt swings his legs, with reports of dizziness and SOB, without any arrythmias, with hypotensive response to injection. Nondiagnostic for ischemia. In recovery, pt treated with IVP Aminophylline 75 mg to reverse Lexiscan. Pt's BP and dizziness improved after reversal and IV hydration. Nuclear images pending. Test reviewed with Dr. Loera. Referred By: Angus Loera Electronically Signed By: Pedro Giron
--- OUTSIDE RECORDS SUMMARY | 2025-02-21 11:49 | XMS_ITS | Clinical Summary ---
Author Organization [facility] Address [address] [place] [address] Phone Care Team Providers Care Oracle Database Consultant Name Role Phone Nataliia Mckeon MD Primary Care Provider [phone] Allergies Active Allergy Reactions Criticality Noted Date [...] each day. 30 each 4 5 Active Active Problems Problem Noted Date Diagnosed Date Adenoma of left adrenal gland 11/30/2024 Overview (11/30/2024): 1.2 cm, during CT scan October 2024 Renal cyst 08/13/2024 Overview (08/13/2024): Per ultrasound in the ER July 2024, from the [facility] ER. Bilateral. Left upper pole cyst [...] Care Team Description 12/29/2024 Telephone Adult Medicine [address] [phone] Nataliia Mckeon MD from Last 3 Months Immunizations Immunization Administration Dates Next Due H1N1 Inj Preservative [...] History Surgery Date Site/Laterality Comments VASECTOMY PROCEDURE: NM VASECTOMY UNI/BI SPX W/POSTOP SEMEN EXAMS NASAL SEPTUM SURGERY PROCEDURE: NM REPAIR NASAL SEPTAL PERFORATIONS; COMMENT: 2 operations TONSILLECTOMY PROCEDURE: HISTORICAL TONSILLECTOMY; COMMENT: 1960 UPPER GASTROINTESTINAL ENDOSCOPY 05/24/2004 PROCEDURE: NM UPPER GI ENDOSCOPY PERFORMED; COMMENT: Negative COLONOSCOPY [...] colonic polyps. Benign neoplasm of colon 12/02/2006 DX:Rihc gn neoplasm of colon; COMMENT: Diminutive tubular [...] 1 Other: Other Father 66, pa ncreatitis, [place] Breast cancer Maternal Grandmother bilate ral; age [...] Record ed Within the last 3 months, [place] many times did you visit the emergency [...] care for your loved ones. For example, childcare attendant or elderly care for an older adult? [...] Date Recorded What is your living situation? Unrecognized valu e 10/26/2024 Sex and Gender Information Value Date [...] Info) Description 03/10/2025 10:00 AM EST Appointment [facility] Endoscopy [address] [place] [phone] Anali Patel MD 175 [facility] [address] [place] [address] 03/23/2025 10:00 AM EST Office Visit Gastroenterology - [address] [facility] [address] [place] [phone] Kat Orlando NP 175 [facility] [address] [place] [address] 03/30/2025 1:15 PM EST Office Visit Adult Medicine [facility] [address] [place] [phone] Nataliia Mckeon MD [address] [place] [address] Health Maintenance Due Date Last Done Comments [...] on patient's age to complete this topic Goals Goal Patient Goal Type Associated Problems Recent Progress Patient-Stated? Author Autogenerat ed Goal Care Plan Autogenerated Problem No Vivienne Diaz Procedures Procedure Name Priority Date/Time Associated Diagnosis Comments LIPID PANEL WITH REFLEX TO DIRECT LDL Routine 10/27/2024 12:25 PM EDT Encounter for screening for cardiovascular disorders DEPRESSION SCREENING Routine 11/20/2023 COLONOSCOPY Routine 03/10/2020 HEPATITIS C SCREENING Routine 10/22/2012 from Last 3 Months or Most Recently Relevant to Health Maintenance Results * Lipid panel with reflex to direct LDL (10/27/2024 12:25 PM EDT) [facility] Cholesterol 151 0 - 200 mg/dL LAB CHEMISTRY METHOD 10/27/2024 5:45 PM EDT [facility] Triglycerides 84 0 - 150 mg/dL LAB CHEMISTRY METHOD 10/27/2024 5:45 PM EDT [facility] HDL 52 >=40 mg/dL LAB CHEMISTRY METHOD 10/27/2024 5:45 PM EDT [facility] LDL Calculated 82 0 - 100 mg/dL LAB CHEMISTRY METHOD 10/27/2024 5:45 PM EDT [facility] VLDL Cholesterol Valeriy 16.8 mg/dL LAB CHEMISTRY METHOD 10/27/2024 5:45 PM EDT [facility] Non HDL Chol. (LDL+VLDL) 99 <145 mg/dL LAB CHEMISTRY METHOD 10/27/2024 5:45 PM EDT [facility] Chol/HDL Ratio 2.9 0.0 - 4.4 LAB CHEMISTRY METHOD 10/27/2024 5:45 PM EDT [facility] Blood Venous blood specimen / Unknown Venipuncture / Unknown 10/27/2024 12:25 PM EDT 10/27/2024 12:25 PM EDT Shane Miller MANAGER RESEARCH AND DEVELOPMENT LAB BLOOD ORDERABLES Final R esult [facility] [address] [place] [address], * Depression Screening (11/20/2023) [facility] Depression Screening abstracted Historical Provider HEALTH MAINTENANCE Final Result * Colonoscopy (03/10/2020) [facility] Colonoscopy abnormal, abstracted Anatomical Region Laterality Modality Other Historical Provider HEALTH MAINTENANCE Final Result * Hepatitis C Screening (10/22/2012) [facility] Hepatitis C Screening abstracted us Historical Provider HEALTH MAINTENANCE Final Result from Last 3 Months or Most Recently Relevant to Health Maintenance Additional Health Concerns Active Problems Noted Date Diagnosed Date Autogenerated Problem 02/09/2025 Insurance [employer] Care Teams Oracle Database Consultant Relationship Specialty Start Date End Date Nataliia Mckeon MD [address] [place] [address] PCP - General Internal Medicine 10/24/20
== END ==
LOC: HO.CARD 10:01
PROVIDERS: PCP Internal Medicine; Visit Provider Internal Medicine
DX: R07.2 Precordial pain (principal)
CPT/HCPCS: 78452; 93017; A9500; J0280; J2785

== ENCOUNTER → 2025-02-21 10:06 | Outpatient (BNV) | payer OTHER, SELFPAY | PROVIDERS: PCP Internal Medicine | DX: R06.02 Shortness of breath (principal); R42 Dizziness and giddiness | CPT/HCPCS: 78452; 93016; 93018 ==

== ENCOUNTER 2025-04-04 12:23 | Outpatient (AMB) | payer OTHER, SELFPAY ==
[2025-04-04 12:23] VITALS: BP 120/76; PULSE 48; O2SAT 96; BMI 25.9
--- NOTE | 2025-04-04 12:23 | A.OFFVIS_ITS ---
Vital Signs 04/04/25 12:23 Height 5 ft 8 in Weight 170 lb 8 oz BMI 25.9 BP 120/76 Blood Pressure Location Rt brachial Position Sitting Pulse 48 L Pulse Source Pulse Oximeter Pulse Oximetry (%) 96 Oxygen Delivery Method Room Air Intake Visit Reasons: 6m follow up Intake Note: Follow up Parkinson's disease, REM sleep behavioral disorder, Anxiety and orthostatic hypotension Emergency Nurse Required: No Accompanied by: Spouse Allergies No Known Allergies Allergy (Verified 04/04/25 12:23) HPI Comments Details: 79 y/o male patient presents for follow up of Parkinson's.He feels lightheaded usually in the mornings . No falls He feels his parkinsons is worse. His tremors in his Right hand are constant Balance is good. speech is lower and stutters His REM behavior disorder is better with melatonin and clonazepam. Anxiety is better with prozac. Now he reports increased bowel movements. Pt is right handed but uses left hand to eat. He states that his fine motor skills declined, can't close shirt buttons. He takes Sinemet 25/100 mg, 1 tab tid He does routine exercise and stretching. He has more trouble with fine motor coordination. Denies falls. He manages constipation with prune juice and flex seed oatmeal. [facility] Medical History Orthostatic hypotension Urinary frequency Cataract Depression Anxiety REM behavioral disorder Parkinsons disease Surgical History Vasectomy status History of tonsillectomy Family History Mother Breast cancer Brother Thyroid cancer Leukemia Sister Colon cancer Social History Alcohol intake: current Alcohol intake frequency: holidays/special occasions only Patient Tobacco Use Status: Never used Tobacco Review of Systems ENT Reports Normal hearing present Neuro Reports Normal hearing present Physical Exam Vital Signs: Last Vital Signs Pulse 48 L 04/04/25 12:23 BP 120/76 04/04/25 12:23 Pulse Ox 96 04/04/25 12:23 Oxygen Delivery Method Room Air 04/04/25 12:23 BMI result Body Mass Index 25.9 Const General: cooperative and no acute distress Nutritional Appearance: average body habitus Orientation/consciousness: patient oriented x3 Neuro Other: moderate decreased facial expression and blink right UE tremors Right UE mild cogwheel rigidity FFM and foot taps decreased patrick R>L Normal posture Mild decreased arm swings r>L General: patient oriented x3 and moves all extremities Cranial nerves: Yes Bilaterally intact EOM present, Yes Normal facial strength present, Yes Midline tongue present, Yes Normal hearing present, Yes Ability to bilaterally rotate head present and Yes Ability to bilaterally elevate shoulders present Cognition (Neuro): normal cognition Motor exam (neuro): Tremors during motor activity present (right hand posturing tremor,bilateral upper arm and wrist rigidity. ) Assessment & Plan Assessment & Plan (1) Parkinsons disease: Code(s): G20 - Parkinson's disease Category: Medical Qualifiers: Dyskinesia presence: without dyskinesia Fluctuating manifestations: without fluctuating manifestations Qualified Code(s): G20.A1 - Parkinson's disease without dyskinesia, without mention of fluctuations (2) REM behavioral disorder: Code(s): G47.52 - REM sleep behavior disorder Category: Medical (3) Anxiety: Code(s): F41.9 - Anxiety disorder, unspecified Category: Medical (4) Orthostatic hypotension: Code(s): I95.1 - Orthostatic hypotension Category: Medical Plan Increase Sinemet 25/100 mg, 1 tab qID. after 1 week of increasing Increase midodrine 5 mg tid melatonin 10mg q HS for REM behavior. clonazepam 0.5mg 1tab qhs Miralax 3-4 times a week Medications: Changed From midodrine 1 tab qam and 1 tab noon and 1 tab evev 2.5 mg PO TID 90 tabs 5RF F41.9 - Anxiety disorder, unspecified, I95.1 - Orthostatic hypotension To midodrine 1 tab qam and 1 tab noon and 1 tab evev 5 mg PO TID 90 tabs 5RF F41.9 - A nxiety disorder, unspecified, I95.1 - Orthostatic hypotension Coding Level of Care Code Est Pt Level 4 (33984) Complex visit Add On G2211 Diagnoses Parkinson's disease without dyskinesia or fluctuating manifestations G20.A1 Dyskinesia presence: without dyskinesia Fluctuating manifestations: without fluctuating manifestations REM behavioral disorder G47.52 Anxiety F41.9 Orthostatic hypotension I95.1
== END 2025-04-04 12:59 | disposition home or self-care (01) ==
LOC: HO.HSMS 12:23
PROVIDERS: PCP Internal Medicine; Visit Provider Psychiatry & Neurology Neurology
DX: G20.A1 Parkinson's disease without dyskinesia, without mention of fluctuations (principal); G47.52 REM sleep behavior disorder; F41.9 Anxiety disorder, unspecified; I95.1 Orthostatic hypotension
CPT/HCPCS: 99214

== ENCOUNTER → 2025-04-04 12:23 | Outpatient (BNVA) | payer OTHER, SELFPAY | PROVIDERS: PCP Internal Medicine; Visit Provider Psychiatry & Neurology Neurology | DX: G20.A1 Parkinson's disease without dyskinesia, without mention of fluctuations (principal); G47.52 REM sleep behavior disorder; F41.9 Anxiety disorder, unspecified; I95.1 Orthostatic hypotension; Z79.899 Other long term (current) drug therapy | CPT/HCPCS: 99212 ==